=== PATIENT | male | born 1940 | race Caucasian/White ===

== ENCOUNTER 2017-11-17 10:01 | Inpatient (IN) | payer MEDICARE, OTHER ==
[2017-11-15 11:08] LABS: EOSINOPHILS % 0.8 % (0.0-6.0); HEMATOCRIT 38.1 % (38.2-49.6); HEMOGLOBIN 12.8 g/dL (14.0-18.0); LYMPHOCYTES # (AUTO) 1.5 (1.0-3.2); LYMPHOCYTES % 29.8 % (18.0-39.1); MEAN CORPUSCULAR HEMOGLOBIN 31.8 pg (28-32); MEAN CORPUSCULAR HGB CONC 33.6 g/dL (31-35); MEAN CORPUSCULAR VOLUME 94.5 fL (81-99); MONOCYTES # (AUTO) 0.5 (0.2-0.8); MONOCYTES % 9.5 % (4.4-11.3); NEUTROPHILS % 59.7 % (38.7-80.0); PLATELET COUNT 195 x10e3/uL (140-360); RED BLOOD COUNT 4.03 x10e6/uL (4.3-5.7); RED CELL DISTRIBUTION WIDTH 12.3 % (11.7-14.4)
[2017-11-15 11:22] LABS: INR 1.19; PROTHROMBIN TIME 14.2 seconds (11.9-14.5)
[2017-11-15 11:23] LABS: PARTIAL THROMBOPLASTIN TIME 32.1 seconds (23.8-35.5)
[2017-11-15 11:32] LABS: ALANINE AMINOTRANSFERASE 20 IU/L (0-55); ALBUMIN 3.8 g/dL (3.5-5.0); ALBUMIN/GLOBULIN RATIO 1.4 (0.8-2.0); ALKALINE PHOSPHATASE 48 IU/L (40-150); BLOOD UREA NITROGEN 16 mg/dL (7-26); BUN/CREATININE RATIO 20 (6-25); CALCIUM 9.1 mg/dL (8.4-10.2); CARBON DIOXIDE 33 mmol/L (22-29); CHLORIDE 101 mmol/L (98-107); CREATININE, SERUM 0.79 mg/dL (0.72-1.25); EST GLOMERULAR FILTRATION RATE > 60 ML/MIN (60-); GLUCOSE 119 mg/dL (74-118); SODIUM 140 mmol/L (136-145)
--- NOTE | 2017-11-15 11:36 | Diagnostic Imaging Report ---
EXAM: XR CHEST 2 VIEWS DATE: 11/15/2017 10:53 AM INDICATION: Preop for prostate surgery COMPARISON: None FINDINGS: Lines and Tubes: None Heart and Mediastinum: Heart upper limits of normal. Aortic vascular calcifications and moderate tortuosity descending thoracic aorta. Lungs and Pleura: Minimal blunting costophrenic sulci could represent trace amounts of pleural fluid or chronic scarring. Minimal atelectasis lung bases. Bones and Soft Tissues: No acute findings. IMPRESSION: 1. Probable chronic changes as detailed above. Signed by: Dr. Ar Mckeon MD on 11/15/2017 11:33 AM
[2017-11-17] VITALS (18 sets, daily range): BP systolic 85–164; BP diastolic 43–80
[~2017-11-17] VITALS: Ht 188 cm; Wt 80.7 kg
[~2017-11-17 10:01] MED LIST: DOXAZOSIN MESYLA2 MG PO; MESTINON60 MG PO
[2017-11-17] MEDS ORDERED: MORPHINE SULFATE INJ 4 MG/ML INJ IV PRN (15:00)
[2017-11-17] MEDS ORDERED: HYDROCODONE/APAP 7.5MG-325MG 1 EA TAB PO PRN (15:00)
[2017-11-17] MEDS ORDERED: DEXMEDETOMIDINE HCL 200 MCG in SODIUM CHLORIDE 0.9% 50ML 48 ML IV PRN (15:30)
--- NOTE | 2017-11-17 15:54 | Operative Report ---
DATE OF PROCEDURE: November 17, 2017 PREOPERATIVE DIAGNOSIS: Benign prostatic hypertrophy with obstruction and decreased force of stream. POSTOPERATIVE DIAGNOSIS: Benign prostatic hypertrophy with obstruction and decreased force of stream. OPERATION PERFORMED: GreenLight photo vaporization of the prostate. ANESTHESIA: General. INDICATIONS: This patient is 77-year-old white male who has had prostate problems that have been getting progressively worse despite medical care since 2005. The patient has recently had several episodes of going into urinary retention. For further details, please refer to the history and physical. The procedure was done in the following fashion: DESCRIPTION OF PROCEDURE: The patient was taken to the operating room and placed under general anesthesia dressed and draped with Hibiclens in lithotomy position in the usual fashion. The 22-Haitian Olympus laser cystoscope was inserted with the visual obturator. No urethral strictures were encountered. The sphincter and verumontanum were intact. The distance from the verumontanum to the bladder neck was estimated about 5 cm. Most of the growth of the prostate was lateral and anterior. There was minimal middle lobe hypertrophy. The prostate was estimated about 50 grams. There was clear efflux seen from both ureteral orifices. No bladder tumors or bladder stones were identified. They were all inspected with a 30-degree oblique lens and there was moderate trabeculation. I then switched over from the visual obturator to the working element. The GreenLight laser photo vaporization of prostate was performed, and this was first started using the laser at 80 gómez for vaporization and 80 gómez for coagulation at the region of the bladder neck. This was to avoid injury to the ureteral orifices. Once the bladder neck was opened up, I could then proceed backwards towards the verumontanum and I went to 120 for vaporization and then as I got further away from the bladder neck I went up to 160. The laser was then used to work my way back to the verumontanum going circumferentially and then clearing up the left lateral lobe and the right lateral lobe with a GreenLight laser. During the procedure, blood loss was minimal. When I terminated procedure, the verumontanum was intact. The ureteral orifices were intact and the prostatic urethra was wide open. I then removed the laser cystoscope and inserted a 24-Haitian 3-way catheter with a 30 mL balloon. Once I put the catheter in large amounts of blood started pouring out of the catheter. The catheter was then placed on traction and continuous bladder irrigation with sterile saline. Once the catheter was on traction with sterile saline, the acute blood loss episode was over. I estimated the blood loss at about 50 mL. The anesthesia was concerned that it might even have been as high as 200, but we were not sure, but it did start pouring blood out the catheter as soon as I put the catheter in. Meanwhile, the patient remained hemodynamically stable throughout the procedure. The patient tolerated the procedure well and left the operating room with minimal bleeding through the catheter now that it was on traction and continuous bladder irrigation. The total number of joules delivered was approximately 330,881 joules. My plan at this time is to have the patient admitted to [facility] and Dr. Lenard Shrestha is being consulted to help with medical management. Job#: [id number]
[2017-11-17] MEDS ORDERED: HALOPERIDOL LACTATE 5 MG/ML VIAL ONE (16:31)
[2017-11-17] MEDS: DOCUSATE SODIUM 100 MG CAP PO SCH (17:00)
[2017-11-17] MEDS ORDERED: ONDANSETRON HCL INJ 2 MG/ML VIAL ONE (17:08)
[2017-11-17] MEDS ORDERED: PROPOFOL IV EMULSION 10 MG/ML 20 ML VIAL ONE (17:08)
[2017-11-17] MEDS ORDERED: DEXAMETHASONE SOD PHOS INJ 4 MG/ML VIAL ONE (17:08)
[2017-11-17] MEDS ORDERED: LIDOCAINE HCL 2% LOCAL INJ 5 ML SDV VIAL INJ ONE (17:08)
[2017-11-17] MEDS ORDERED: MIDAZOLAM HCL 2 MG/2 ML VIAL ONE (17:13)
[2017-11-17] MEDS ORDERED: KETAMINE HCL INJ 50 MG/ML 10 ML VIAL ONE (17:13)
[2017-11-17] MEDS ORDERED: FENTANYL CITRATE/PF 100MCG/2 ML INJ ONE (17:13)
[2017-11-17 17:34] LABS: ANION GAP 10.9 mmol/L (8-16); BLOOD UREA NITROGEN 16 mg/dL (7-26); BUN/CREATININE RATIO 21 (6-25); CALCIUM 7.7 mg/dL (8.4-10.2); CARBON DIOXIDE 29 mmol/L (22-29); CHLORIDE 103 mmol/L (98-107); CREATININE, SERUM 0.75 mg/dL (0.72-1.25); EST GLOMERULAR FILTRATION RATE > 60 ML/MIN (60-); GLUCOSE 116 mg/dL (74-118); POTASSIUM 3.9 mmol/L (3.5-5.1); SODIUM 139 mmol/L (136-145)
[2017-11-17] MEDS: DEXMEDETOMIDINE HCL 200 MCG in SODIUM CHLORIDE 0.9% 50ML 48 ML IV SCH (17:45)
[2017-11-17] MEDS ORDERED: ACETAMINOPHEN 1000 MG/100 ML IV ONE (21:11)
[2017-11-17] MEDS ORDERED: ACETAMINOPHEN 1000 MG/100 ML 100 ML IV ONE (21:17)
[2017-11-17 21:58] LABS: BASOPHILS % 0.2 % (0.0-1.0); LYMPHOCYTES % 9.5 % (18.0-39.1); MEAN CORPUSCULAR HEMOGLOBIN 31.6 pg (28-32); MEAN CORPUSCULAR HGB CONC 32.5 g/dL (31-35); MEAN CORPUSCULAR VOLUME 97.3 fL (81-99); MONOCYTES # (AUTO) 0.9 (0.2-0.8); MONOCYTES % 8.4 % (4.4-11.3); NEUTROPHILS # (AUTO) 8.9 (2.1-6.9); NEUTROPHILS % 81.4 % (38.7-80.0); PLATELET COUNT 176 x10e3/uL (140-360); RED BLOOD COUNT 4.11 x10e6/uL (4.3-5.7); RED CELL DISTRIBUTION WIDTH 12.9 % (11.7-14.4)
[2017-11-17] MEDS ORDERED: AZTREONAM (AZACTAM) 1 GM in WATER STERILE 10ML VIAL 10 ML IV SCH (22:00)
[2017-11-17 22:10] LABS: COLOR,URINE YELLOW (YELLOW); LEUKOCYTE ESTERASE ,URINE NEGATIVE (NEGATIVE); NITRITE,URINE NEGATIVE (NEGATIVE); PROTEIN,URINE DIPSTICK 2+ (NEGATIVE)
[2017-11-17 22:11] LABS: BILIRUBIN,URINE NEGATIVE (NEGATIVE); KETONES,URINE NEGATIVE (NEGATIVE); URINE UROBILINOGEN 0.2 mg/dL (0.2 - 1)
[2017-11-17] MEDS: SODIUM CHLORIDE 0.9% 1000ML 1,000 ML IV SCH (22:11)
[2017-11-17 22:13] LABS: CLARITY,URINE SL CLOUDY (CLEAR)
[2017-11-17 22:13] LABS: ANION GAP 12.5 mmol/L (8-16); BLOOD UREA NITROGEN 14 mg/dL (7-26); BUN/CREATININE RATIO 18 (6-25); CARBON DIOXIDE 30 mmol/L (22-29); CHLORIDE 100 mmol/L (98-107); CREATININE, SERUM 0.78 mg/dL (0.72-1.25); EST GLOMERULAR FILTRATION RATE > 60 ML/MIN (60-); GLUCOSE 164 mg/dL (74-118); POTASSIUM 4.5 mmol/L (3.5-5.1); SODIUM 138 mmol/L (136-145)
[2017-11-17] MEDS: VANCOMYCIN 1GM/NS 250 ML 250 ML IV SCH (22:13)
[2017-11-17 22:19] LABS: RBC,URINE >50 /HPF (0-5)
[2017-11-17 22:20] LABS: BACTERIA,URINE RARE /HPF; TRANSITIONAL EPI CELLS,URINE FEW
[2017-11-17] MEDS: MORPHINE SULFATE INJ 4 MG/ML INJ IV PRN (22:25)
[2017-11-17] MEDS: AZTREONAM 1 GM VIAL IV SCH (23:00)
[2017-11-18] VITALS (58 sets, daily range): BP systolic 80–171; BP diastolic 36–95
[2017-11-18] MEDS: DEXMEDETOMIDINE HCL 200 MCG in SODIUM CHLORIDE 0.9% 50ML 48 ML IV SCH ×2 (01:06→05:12)
--- NOTE | 2017-11-18 01:29 | Diagnostic Imaging Report ---
CHEST SINGLE (PORTABLE), 11/18/2017 12:29 AM Technique: CHEST SINGLE (PORTABLE) Comparison: 11/15/2017 Clinical history: \S\ACUTE RESPIRATORY DISTRESS \S\[id number] \S\0100 \S\Y Findings: See Impression Impression: Limited by portable technique and rotation. Right lung apex is excluded. 1. Stable cardiomediastinal silhouette with aortic tortuosity or ectasia. 2. New bibasilar opacities, either atelectasis or aspiration/infection. Question small underlying effusions. Signed by: Dr Kriss Millan MD on 11/18/2017 1:26 AM
[2017-11-18 01:34] LABS: ABG HCO3 32 mmol/L (23-28); ABG PCO2 96 mmHg (41-51); ABG PH 7.14 (7.31-7.41); ABG PO2 51 mmHg (80-105)
[2017-11-18] MEDS ORDERED: ACETAMINOPHEN 1000 MG/100 ML IV SCH (03:00)
[2017-11-18 03:36] LABS: ABG PH 7.21 (7.31-7.41)
[2017-11-18 03:37] LABS: ABG HCO3 33 mmol/L (23-28); ABG PCO2 82 mmHg (41-51); ABG PO2 127 mmHg (80-105)
[2017-11-18 04:31] LABS: BASOPHILS % 0.1 % (0.0-1.0); HEMATOCRIT 34.3 % (38.2-49.6); HEMOGLOBIN 11.2 g/dL (14.0-18.0); LYMPHOCYTES # (AUTO) 0.8 (1.0-3.2); LYMPHOCYTES % 9.6 % (18.0-39.1); MEAN CORPUSCULAR HEMOGLOBIN 31.5 pg (28-32); MEAN CORPUSCULAR HGB CONC 32.7 g/dL (31-35); MEAN CORPUSCULAR VOLUME 96.6 fL (81-99); MONOCYTES # (AUTO) 0.8 (0.2-0.8); NEUTROPHILS # (AUTO) 6.7 (2.1-6.9); NEUTROPHILS % 79.7 % (38.7-80.0); PLATELET COUNT 139 x10e3/uL (140-360); RED BLOOD COUNT 3.55 x10e6/uL (4.3-5.7)
[2017-11-18 04:48] LABS: ANION GAP 12.5 mmol/L (8-16); BLOOD UREA NITROGEN 18 mg/dL (7-26); BUN/CREATININE RATIO 18 (6-25); CALCIUM 7.9 mg/dL (8.4-10.2); CARBON DIOXIDE 29 mmol/L (22-29); CHLORIDE 102 mmol/L (98-107); CREATININE, SERUM 0.99 mg/dL (0.72-1.25); EST GLOMERULAR FILTRATION RATE > 60 ML/MIN (60-); GLUCOSE 132 mg/dL (74-118); POTASSIUM 4.5 mmol/L (3.5-5.1); SODIUM 139 mmol/L (136-145)
[2017-11-18] MEDS: MORPHINE SULFATE INJ 4 MG/ML INJ IV PRN (05:08)
[2017-11-18] MEDS: AZTREONAM 1 GM VIAL IV SCH ×2 (05:12→14:31)
[2017-11-18] MEDS ORDERED: ACETAMINOPHEN 1000 MG/100 ML IV PRN (06:00)
[2017-11-18] MEDS: FAMOTIDINE 20 MG TAB PO SCH ×3 (07:52→17:14)
[2017-11-18] MEDS: MIDODRINE 2.5 MG TAB PO SCH ×4 (07:52→17:14)
[2017-11-18] MEDS: PYRIDOSTIGMINE BROMIDE 60 MG TAB PO SCH (07:52)
[2017-11-18] MEDS: SODIUM CHLORIDE 0.9% 1000ML 1,000 ML IV SCH ×3 (07:52→22:00)
[2017-11-18] MEDS: DOCUSATE SODIUM 100 MG CAP PO SCH ×3 (07:52→17:14)
--- NOTE | 2017-11-18 08:25 | Consultation ---
DATE OF CONSULTATION: November 18, 2017 MEDICAL CONSULTATION PRIMARY CARE PHYSICIAN: Dr. Posey in [place]. REASON FOR CONSULTATION: Medical management. CHIEF COMPLAINT: Enlarged prostate requiring ablation. HISTORY OF PRESENT ILLNESS: This is a 77-year-old man with a history of asbestosis now brought into the hospital for elective green light photoablation of the prostate by Dr. Coello. The patient underwent the procedure. Subsequently, developed worsening shortness of breath. His blood pressure was low. He was moved to the ICU. He had to be started on BiPAP overnight due to carbon dioxide narcosis and confusion. He was started on broad-spectrum antibiotics for sepsis. The patient was restrained due to attempts to remove the Daniel and mask. His has been at his bedside. states that there is no history of congestive heart failure or sleep apnea. 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 He had a leaky aortic valve in 2011. 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 ALLERGIES: PER ELECTRONIC MEDICAL RECORD. FAMILY HISTORY/SOCIAL HISTORY: Father had Alzheimer disease and glaucoma. The patient is . He smokes less than half a pack of cigarettes per day. MEDICATIONS: Per electronic medical record. REVIEW OF SYSTEMS: Unreliable. PHYSICAL EXAMINATION VITAL SIGNS: Have been reviewed. Blood pressure as low as 87/43, pulse as high as 111, temperature 99.9. GENERAL: A tired-appearing man resting in bed. HEENT: He has BiPAP mask in place. CARDIOVASCULAR: Normal S1 and S2. LUNGS: He has reduced breath sounds with fine crackles. Coarse breath sounds. ABDOMEN: Soft, nontender and nondistended. : He has a Daniel in place. EXTREMITIES: No edema. SCDs bilaterally. SKIN: Dry. PSYCHIATRIC: Flat affect. NEUROLOGICAL: He is awake and moving extremities. He is restrained. LABS: Reviewed. MEDICATIONS: Reviewed. ASSESSMENT: This is a 77-year-old man with: 1. Sepsis. 2. Urinary tract infection. 3. CO2 narcosis. 4. CO2 retention. 5. Acute hypercapnic hypoxemic respiratory failure requiring BiPAP. 6. Hyperglycemia. 7. Signs of congestive heart failure with elevated brain natriuretic peptide. 8. Myasthenia gravis. 9. BPH: Status post green light laser photoablation. 10. Overweight state. 11. Asbestosis. PLAN 1. Continue BiPAP support. His pCO2 was 96 and now down to 82. 2. Continue broad-spectrum antibiotics of aztreonam and vancomycin, and follow up cultures. 3. Obtain 2-D echocardiogram. 4. Obtain lipid panel and hemoglobin A1c. 5. Pulmonary service was consulted overnight. 6. Limit fluids. 7. Start midodrine for hypotension. 8. Continue bladder irrigation. 9. Use SCD and Pepcid. 10. Monitor closely in the ICU. Critical care time more than 35 minutes. Job#: [id number] [place]
[2017-11-18] MEDS ORDERED: FLOMAX0.4 MG PO (08:49)
--- NOTE | 2017-11-18 11:14 | Consultation ---
DATE OF CONSULTATION: November 18, 2017 PULMONARY CONSULTATION On behalf of Dr. Christensen. The patient is a 77-year-old white male consulted for the development of acute hypercapnic and hypoxemic respiratory failure after undergoing TURP for very enlarged prostate, and getting different medications for sedation and pain medication. The patient was put on BiPAP, and in the subsequent hours he improved. The current condition is that on 5 L he has an oxygen saturation of 99. He is completely alert. The patient is not showing good cooperation. He is in a position of refusing. The is giving the medical information on the patient. No previous lung problems. There is some aortic dysfunction. He had enlarged prostate, which was treated by TURP. He was, after the surgery, very agitated and combative. Massive sedation as well as pain medication was given. The denies hypertension, diabetes mellitus, or hyperlipidemia. The patient is on Mestinon for myasthenia gravis. There are no GI tract problems and no kidneys besides the prostate. He had surgery for skin melanoma. At least 2 were removed. There was also some kind of carcinoma on the hands, and surgery and radiation was given. PAST SURGICAL HISTORY: Bilateral repair, bilateral cataract, tonsillectomy. SOCIAL HISTORY: The patient at a young age used to be an occasional smoker. Also, at a young age alcohol abuse until 30 years ago when he quit. No illicit drug abuse. ALLERGIES: THE PATIENT IS ALLERGIC TO AND HYDROCODONE. PHYSICAL EXAMINATION GENERAL: He is awake, but there is some degree of refusal to be checked. VITALS: The pulse is 85, oxygen saturation 99 on 5 L and we went down to 3 L, respiratory rate 25, blood pressure 93/56. HEENT: Atraumatic. NECK: No tenderness. LUNGS: Decreased breath sounds in both bases. HEART: No murmurs. ABDOMEN: Soft. EXTREMITIES: No pedal edema. LABS: Platelets 139,000. Sugar 132. Hemoglobin A1c 5.2. BNP 305. Calcium 7.9, albumin 3.8. The rest of the CBC and chemistry unremarkable. Chest x-ray disclosed haziness of the left lung. There is bibasilar atelectasis and probably some degree of pleural effusion. The ABG that was done at the beginning when he arrived to the unit, pH 7.14, pCO2 96, pO2 51. BiPAP was given and then it was stopped. Currently, the patient is on currently 3 L of oxygen and he is doing fine. IMPRESSION 1. Acute hypercapnic and hypoxemic respiratory failure: Treated after sedation and pain medication was given. 2. Status post transurethral resection of prostate for enlargement of the prostate. 3. The patient has myasthenia gravis. 4. The patient has been combative and agitated: Currently, he is expressing his desire to go home AMA. RECOMMENDATIONS: Continue with oxygen at 3 L by nasal cannula, and to start as soon as possible incentive spirometry. If the patient remains in the urine, I will follow him during the weekend. If he is leaving, this is up to Dr. Shrestha in order to decide if the patient can be discharged. Job#: [id number] MAURICIO
--- NOTE | 2017-11-18 13:33 | Progress Note ---
DATE: November 18, 2017 Yesterday, the patient became very combative after the green light laser photovaporization of the prostate and started ripping at things and demanding to go home. Per suggestion of anesthesia, the patient was moved from the recovery room to the intensive care unit. The patient's states that he has been combative before after surgery, but this was the worst time he had been combative after surgery. The patient this morning is afebrile. His hemoglobin was 11.2 and hematocrit is 34.3. His BUN is 18 and creatinine is 0.99. The traction has broken off of the catheter and the catheter is no longer on traction. The catheter effluxes clear with a continuous bladder irrigation running at a slow, steady rate. PHYSICAL EXAMINATION GENERAL: The patient has restraints on, but they are not tied down. There are just on his extremities. Patient demanded to go home. LUNGS: Have some rales at the bottom, and they clear with coughing. ABDOMEN: Soft. : The penis and testicles appear normal. EXTREMITIES: There is no evidence of a deep venous thrombophlebitis. I told patient that he was in no shape to go home today. I told him that if he becomes combative again, that might mean restraints again and another day in the hospital. After discussion with the patient, the plan is as follows: The patient states he will not be combative, and we can transfer him to the floor. If he continues to do well overnight, the Daniel catheter will be removed tomorrow for a trial of voiding. However, if there are any problems, he was advised that the catheter might stay in, and he would be in the hospital longer. Job#: [id number] [place]
[2017-11-18] MEDS ORDERED: MIDAZOLAM HCL 2 MG/2 ML VIAL IV STA (17:54)
[2017-11-18 18:00] LABS: ALANINE AMINOTRANSFERASE 31 IU/L (0-55); ALBUMIN 3.3 g/dL (3.5-5.0); ALBUMIN/GLOBULIN RATIO 1.2 (0.8-2.0); ALKALINE PHOSPHATASE 53 IU/L (40-150); ANION GAP 14.8 mmol/L (8-16); BLOOD UREA NITROGEN 15 mg/dL (7-26); BUN/CREATININE RATIO 15 (6-25); CALCIUM 8.3 mg/dL (8.4-10.2); CARBON DIOXIDE 26 mmol/L (22-29); CHLORIDE 101 mmol/L (98-107); CREATINE KINASE 390 IU/L (30-200); CREATININE, SERUM 0.97 mg/dL (0.72-1.25); EST GLOMERULAR FILTRATION RATE > 60 ML/MIN (60-); GLUCOSE 172 mg/dL (74-118); POTASSIUM 3.8 mmol/L (3.5-5.1); SODIUM 138 mmol/L (136-145)
[2017-11-18] MEDS ORDERED: NOREPINEPHRINE 8 MG/D5W 250 ML ONE (18:00)
[2017-11-18 18:18] LABS: BASOPHILS % 0.2 % (0.0-1.0); EOSINOPHILS % 0.1 % (0.0-6.0); HEMATOCRIT 37.7 % (38.2-49.6); HEMOGLOBIN 12.3 g/dL (14.0-18.0); LYMPHOCYTES # (AUTO) 3.8 (1.0-3.2); LYMPHOCYTES % 24.1 % (18.0-39.1); MEAN CORPUSCULAR HEMOGLOBIN 31.9 pg (28-32); MEAN CORPUSCULAR HGB CONC 32.6 g/dL (31-35); MEAN CORPUSCULAR VOLUME 97.9 fL (81-99); MONOCYTES # (AUTO) 1.8 (0.2-0.8); MONOCYTES % 11.2 % (4.4-11.3); NEUTROPHILS # (AUTO) 10.1 (2.1-6.9); NEUTROPHILS % 63.9 % (38.7-80.0); PLATELET COUNT 194 x10e3/uL (140-360); RED BLOOD COUNT 3.85 x10e6/uL (4.3-5.7)
[2017-11-18] MEDS ORDERED: NOREPINEPHRINE 8 MG/D5W 250 ML 250 ML IV PRN (18:30)
[2017-11-18] MEDS ORDERED: PROPOFOL IV EMULSION 10MG/ML 100 ML ONE (18:35)
--- NOTE | 2017-11-18 18:51 | Diagnostic Imaging Report ---
History:Unresponsive Comparison studies: None Technique: Axial images were obtained from the skull base to the vertex. Coronal and sagittal images reconstructed from the axial data. Dose modulation, iterative reconstruction, and/or weight based adjustment of the mA/kV was utilized to reduce the radiation dose to as low as reasonably achievable. Intravenous contrast: None Findings: Scalp/skull: No abnormalities. Extra-axial spaces: No masses. No fluid collections. Brain sulci: Appropriate for age Ventricles: Normal in size and configuration. No hydrocephalus. Parenchyma: No abnormal densities. No masses, hemorrhage, acute or chronic cortical vascular insults. Sellar/suprasellar region: No abnormalities. Craniocervical junction: Patent foramen magnum. No Chiari one malformation. Incidental findings: Subtle atherosclerotic calcifications in the carotid siphons and right vertebral artery. Impression: No intracranial abnormalities. Signed by: Dr. Azar Ferris M.D. on 11/18/2017 6:47 PM
[2017-11-18 19:23] LABS: BAND NEUTROPHILS % (MANUAL) 1 %; LYMPHOCYTES % (MANUAL) 15 % (19-48); MONOCYTES % (MANUAL) 18 % (3.4-9.0); NEUTROPHILS % (MANUAL) 54 % (40-74); PLATELET ESTIMATE ADEQUATE; PLATELET MORPHOLOGY COMMENT NORMAL; RBC MORPHOLOGY COMMENT NORMAL
--- NOTE | 2017-11-18 19:25 | Diagnostic Imaging Report ---
CHEST SINGLE (PORTABLE), 11/18/2017 12:00 AM Technique: CHEST SINGLE (PORTABLE) Comparison: 11/18/2017 Clinical history: cardiac arrest Findings: See Impression Impression: Rotated portable radiograph. 1. Lines/Tubes: ET tube placement 4.7 cm above the gilbert. 2. Stable enlarged cardiomediastinal silhouette. 3. New diffuse bilateral opacities, likely a component of edema. Underlying bibasilar atelectasis or aspiration/infection. 4. Possible underlying pleural fluid. Signed by: Dr Kriss Millan MD on 11/18/2017 7:22 PM
[2017-11-18 20:05] LABS: ABG HCO3 31 mmol/L (23-28); ABG PCO2 59 mmHg (41-51); ABG PH 7.33 (7.31-7.41); ABG PO2 85 mmHg (80-105)
--- NOTE | 2017-11-18 20:11 | Progress Note ---
DATE: November 18, 2017 UROLOGY PROGRESS NOTE I was notified by the nursing staff that the patient had just had a code blue. Apparently, the patient's left the room for a few seconds then came back in and saw that he was not responding appropriately and looked faint and weak and she contacted the nursing staff. The patient's telemetry suggested that he might be having an acute myocardial infarction and because he was having some difficulty breathing, he was intubated and his troponin levels have now come back showing that they were rising, so it strongly suggests that he has an acute myocardial infarction. The patient has been transferred back to the intensive care unit on a ventilator and I ordered not to remove the Daniel catheter. PHYSICAL EXAMINATION GENERAL: The patient is no longer agitated and combative since he has been placed on Ditropan. ABDOMEN: Soft. The catheter is draining clear-colored fluid with continuous bladder irrigation running, but I am not taking the catheter out tomorrow as it was previously planned. Further recommendations regarding the treatment of this patient was made by Dr. Shrestha and the pulmonary consultants, Dr. Christensen, and Dr. Mitul Coombs has been consulted as a assembly loader. Meanwhile the patient's hemoglobin was 12.3 hematocrit of 37.7. His BUN is 15 creatinine 0.97. IMPRESSION: At this time is acute myocardial infarction and benign prostatic hypertrophy with obstruction. Job#: [id number] CQ
[2017-11-18] MEDS ORDERED: MIDAZOLAM HCL 5 MG/ML VIAL ONE (21:43)
[2017-11-18] MEDS ORDERED: SODIUM CHLORIDE 0.9% 100 ML ONE (21:44)
--- NOTE | 2017-11-18 21:48 | Diagnostic Imaging Report ---
CHEST XRAY LINE PLACEMENT, 11/18/2017 9:11 PM Technique: CHEST XRAY LINE PLACEMENT Comparison: 11/18/2017. Clinical history: Picc line placement Findings: See Impression Impression: 1. Lines/Tubes: ET tube about 5.5 cm above the gilbert. Left PICC line tip projects near the cavoatrial junction, slightly obscured by motion and body habitus. 2. Likely stable enlarged cardiomediastinal silhouette 3. Diffuse opacities, favor a component of edema with bibasilar atelectasis or aspiration/infection. Possible underlying effusions. Signed by: Dr Kriss Millan MD on 11/18/2017 9:45 PM
[2017-11-18] MEDS: VANCOMYCIN 1GM/NS 250 ML 250 ML IV SCH (23:00)
[2017-11-18] MEDS: PROPOFOL IV EMULSION 10MG/ML 100 ML IV SCH (23:22)
[2017-11-19] VITALS (49 sets, daily range): BP systolic 82–153; BP diastolic 44–90
[2017-11-19] MEDS: AZTREONAM 1 GM VIAL IV SCH ×4 (00:05→23:30)
[2017-11-19 04:49] LABS: ALBUMIN 2.9 g/dL (3.5-5.0); BILIRUBIN,DIRECT 0.4 mg/dL (0.0-0.5)
[2017-11-19 04:58] LABS: CREATINE KINASE MB 8.1 ng/mL (0-5.0)
[2017-11-19] MEDS: FAMOTIDINE 20 MG TAB PO SCH ×2 (07:30→16:30)
[2017-11-19] MEDS: MIDODRINE 2.5 MG TAB PO SCH ×3 (08:00→16:00)
[2017-11-19] MEDS: PYRIDOSTIGMINE BROMIDE 60 MG TAB PO SCH (09:00)
[2017-11-19] MEDS: DOCUSATE SODIUM 100 MG CAP PO SCH ×2 (09:00→17:00)
[2017-11-19] MEDS: MIDAZOLAM HCL 25 MG in SODIUM CHLORIDE 0.9% 50ML 45 ML IV PRN ×3 (09:30→20:19)
[2017-11-19] MEDS ORDERED: ASPIRIN 81 MG CHEW TAB NG ONE (10:00)
[2017-11-19] MEDS: ATORVASTATIN 40 MG TAB NG SCH (10:00)
--- NOTE | 2017-11-19 10:41 | Consultation ---
DATE OF CONSULTATION: November 19, 2017 CARDIOLOGY CONSULTATION REASON FOR CONSULTATION: Cardiac arrest. Mr. Sabillon is a 77-year-old gentleman with a history of malignant melanoma, benign prostatic hypertrophy, dysarthria, dysphagia, as well as aortic valve disease, who was admitted for transurethral resection of his prosthetic by Dr. Coello. Postoperatively, the patient was hypercarbic and insisted on transferring out of the ICU. However, had hypercarbic respiratory failure with a pH of 7.14, pCO2 96 and pO2 of 51. Brief chest compressions were required. He was emergently intubated with improvement in his pH and pCO2 levels. He now is hypertensive in the emergency room on dopamine and Levophed. He is sedated with propofol and is unresponsive. I cannot assert any history of cardiac disease. There is no family present at bedside. Per the chart, the patient smoked several years ago and also drank excessively, but not at present. REVIEW OF SYSTEMS: Unobtainable as the patient is intubated. PHYSICAL EXAMINATION VITALS: Afebrile, heart rate 78, blood pressure 121/61, O2 sat 99%. CARDIOVASCULAR: Regular rhythm. S4 gallop. Systolic murmur. LUNGS: Crackles and rhonchi bilaterally. ABDOMEN: Distended. : Urethral irrigation is ongoing. EXTREMITIES: Pedal pulses are absent. The patient is unresponsive. Serum creatinine is normal. Cardiac enzymes are elevated consistent with myocardial infarction. Troponin is 1.62. CK-MB 10.3. Chest CT was done. Chest x-ray shows atelectasis with pleural effusions bilaterally. Echocardiogram is pending. EKG shows sinus rhythm with left ventricular hypertrophy, repolarization abnormalities and QRS widening. ASSESSMENT 1. Hypercarbic respiratory arrest. 2. Kms-HH-[id number] elevation myocardial infarction. RECOMMENDATION: At this point, the patient is hypotensive and will be unable to give him beta blockers. Additionally, he has ongoing irrigation for his recent prostate surgery, and anticoagulation will also be held at this point. He does need an NG tube and potentially aspirin and statin as the only cardiac medications. Echocardiogram will be obtained. Once the patient has recovered from his acute illness, cardiogenic shock, as well as cardiac arrest, coronary angiography is indicated. Overall prognosis is guarded. I thank Dr. Coello for this consultation. Job#: [id number] [place]
--- NOTE | 2017-11-19 11:14 | Progress Note ---
DATE: November 19, 2017 The patient is currently in the intensive care unit on a ventilator. He is getting vancomycin and propofol, norepinephrine, dopamine, atorvastatin, famotidine, and morphine and among others. The patient is not combative right now as he is heavily sedated. PHYSICAL EXAMINATION LUNGS: Still has some rales. ABDOMEN: Soft. : The Daniel catheter is draining fairly clear-colored urine on a slow continuous drip. EXTREMITIES: There is no evidence of swelling of the legs right now suggestive of a DVT that I can see. He still has the compression pumps. My plan at this time is to keep the Daniel catheter in until the patient is off the ventilator, breathing on his own and ambulatory. Job#: [id number] MAURICIO
[2017-11-19] MEDS: SODIUM CHLORIDE 0.9% 1000ML 1,000 ML IV SCH ×2 (12:00→22:00)
--- NOTE | 2017-11-19 15:59 | Progress Note ---
DATE: November 19, 2017 The patient is a 77 year old that yesterday was transferred from the unit to the regular floor. Over there, he arrested. He needed to be intubated. He was severely hypotensive on Levophed, and subsequently dopamine was started. Since then, the patient has been improving. He is more responsive, but he still when he is awake he is agitated, combative, and he tries to pull out the lines. The patient was admitted after undergoing surgery for the enlarged prostate. He developed pneumonia. He developed respiratory failure. He was seen by me yesterday. He required as I reported intubation. We were able to extubate him. When he was transferred to the regular floor, he arrested. He has a history of myasthenia gravis. Besides that, he has a history of urinary tract infection. The patient had surgery for melanoma present in the area of the left scapula and left forearm. 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 He had also cataract surgery. 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 He was found to have elevated PSA on November 02, 2017. He has myasthenia gravis. He was seen to have parietal plaques. Most likely he had exposure to asbestos. Used to smoke about half a pack a day, but has not smoked recently. He never drank. He denies illicit drug abuse. ALLERGIES: HE IS ALLERGIC TO CEFADROXIL AND HYDROCODONE WITH TYLENOL. PHYSICAL EXAMINATION GENERAL: Currently, he is sleeping. VITALS: Blood pressure 92/47, pulse 80. He is on a dopamine drip. He is on a Versed drip. He is on an assist control of 50, tidal volume 450, FIO2 70, PEEP of 7. HEENT: Oral intubation. NECK: No tenderness. LUNGS: There are decreased breath sounds, as well as rhonchi in both lungs. HEART: No murmurs. ABDOMEN: Soft. EXTREMITIES: He has no pedal edema. LABS: WBC is 15.84. Sugar 154. Lactic acid 28.4. AST 51. CPK 390. Troponin I the highest is 3627. Albumin 3.3. The chest x-ray disclosed the basilar infiltration and opacity. The electrocardiogram disclosed changes in the repolarization that can be compatible with acute VA. IMPRESSION 1. Acute respiratory failure, most likely acute myocardial infarction. 2. Cardiogenic shock. 3. He may have septic shock. 4. Myasthenia gravis. 5. He has chronic obstructive pulmonary disease. 6. He has history of most likely asbestos exposure. 7. Multiple surgeries for melanoma, as well as cancer of the arm. RECOMMENDATIONS: I would recommend to continue with the dopamine, the Versed drip, the current ventilatory settings. He is on 1 g q.8 h. IV and vancomycin 1 g daily. He is also on Mestinon due to the myasthenia gravis. Job#: [id number] [place]
[2017-11-19 16:44] LABS: BASOPHILS % 0.1 % (0.0-1.0); EOSINOPHILS % 0.1 % (0.0-6.0); HEMATOCRIT 31.3 % (38.2-49.6); HEMOGLOBIN 10.6 g/dL (14.0-18.0); LYMPHOCYTES # (AUTO) 1.1 (1.0-3.2); LYMPHOCYTES % 13.7 % (18.0-39.1); MEAN CORPUSCULAR HEMOGLOBIN 31.5 pg (28-32); MEAN CORPUSCULAR HGB CONC 33.9 g/dL (31-35); MEAN CORPUSCULAR VOLUME 93.2 fL (81-99); MONOCYTES % 12.2 % (4.4-11.3); NEUTROPHILS % 73.4 % (38.7-80.0); PLATELET COUNT 151 x10e3/uL (140-360); RED BLOOD COUNT 3.36 x10e6/uL (4.3-5.7); RED CELL DISTRIBUTION WIDTH 12.5 % (11.7-14.4)
[2017-11-19 16:53] LABS: ANION GAP 12.9 mmol/L (8-16); BLOOD UREA NITROGEN 17 mg/dL (7-26); BUN/CREATININE RATIO 24 (6-25); CALCIUM 8.2 mg/dL (8.4-10.2); CARBON DIOXIDE 30 mmol/L (22-29); CHLORIDE 102 mmol/L (98-107); EST GLOMERULAR FILTRATION RATE > 60 ML/MIN (60-); GLUCOSE 109 mg/dL (74-118); MAGNESIUM 1.8 MG/DL (1.3-2.1); PHOSPHORUS 1.4 MG/DL (2.3-4.7); POTASSIUM 3.9 mmol/L (3.5-5.1); SODIUM 141 mmol/L (136-145)
[2017-11-19] MEDS: PROPOFOL IV EMULSION 10MG/ML 100 ML IV SCH (19:30)
[2017-11-19] MEDS: VANCOMYCIN 1GM/NS 250 ML 250 ML IV SCH (23:00)
[2017-11-20] VITALS (57 sets, daily range): BP systolic 89–133; BP diastolic 50–73
[2017-11-20] MEDS: MIDAZOLAM HCL 25 MG in SODIUM CHLORIDE 0.9% 50ML 45 ML IV PRN ×4 (02:20→21:25)
[2017-11-20 04:39] LABS: BASOPHILS % 0.2 % (0.0-1.0); EOSINOPHILS % 0.2 % (0.0-6.0); HEMATOCRIT 29.3 % (38.2-49.6); HEMOGLOBIN 9.9 g/dL (14.0-18.0); LYMPHOCYTES # (AUTO) 0.8 (1.0-3.2); LYMPHOCYTES % 12.5 % (18.0-39.1); MEAN CORPUSCULAR HEMOGLOBIN 31.7 pg (28-32); MEAN CORPUSCULAR HGB CONC 33.8 g/dL (31-35); MEAN CORPUSCULAR VOLUME 93.9 fL (81-99); MONOCYTES # (AUTO) 0.7 (0.2-0.8); MONOCYTES % 10.6 % (4.4-11.3); NEUTROPHILS # (AUTO) 4.9 (2.1-6.9); NEUTROPHILS % 76.2 % (38.7-80.0); PLATELET COUNT 146 x10e3/uL (140-360); RED BLOOD COUNT 3.12 x10e6/uL (4.3-5.7); RED CELL DISTRIBUTION WIDTH 12.6 % (11.7-14.4)
[2017-11-20 05:03] LABS: ALANINE AMINOTRANSFERASE 22 IU/L (0-55); ALBUMIN 2.5 g/dL (3.5-5.0); ALKALINE PHOSPHATASE 51 IU/L (40-150); ANION GAP 11.7 mmol/L (8-16); BLOOD UREA NITROGEN 19 mg/dL (7-26); BUN/CREATININE RATIO 28 (6-25); CALCIUM 8.1 mg/dL (8.4-10.2); CARBON DIOXIDE 29 mmol/L (22-29); CHLORIDE 106 mmol/L (98-107); CREATININE, SERUM 0.69 mg/dL (0.72-1.25); EST GLOMERULAR FILTRATION RATE > 60 ML/MIN (60-); GLUCOSE 94 mg/dL (74-118); MAGNESIUM 1.8 MG/DL (1.3-2.1); PHOSPHORUS 1.8 MG/DL (2.3-4.7); POTASSIUM 3.7 mmol/L (3.5-5.1); SODIUM 143 mmol/L (136-145)
[2017-11-20 06:11] LABS: ABG PCO2 48 mmHg (41-51); ABG PO2 56 mmHg (80-105)
[2017-11-20 06:12] LABS: ABG HCO3 30 mmol/L (23-28)
--- NOTE | 2017-11-20 06:21 | Diagnostic Imaging Report ---
CHEST SINGLE (PORTABLE), 11/20/2017 5:00 AM Technique: CHEST SINGLE (PORTABLE) Comparison: 11/18/2017. Clinical history: Intubated Findings: See Impression Impression: Rotated portable radiograph 1. Lines/Tubes: ET tube about 6 cm above the gilbert. Left PICC line tip projects near the cavoatrial junction, slightly obscured by motion and body habitus. 2. Stable cardiomediastinal silhouette 3. Increased left basilar opacity, likely a combination of moderate pleural fluid and atelectasis/consolidation. Small right pleural effusion. Suspected underlying edema. Signed by: Dr Kriss Millan MD on 11/20/2017 6:18 AM
[2017-11-20 08:24] LABS: ABG HCO3 28 mmol/L (23-28); ABG PCO2 51 mmHg (41-51); ABG PH 7.35 (7.31-7.41); ABG PO2 135 mmHg (80-105)
[2017-11-20] MEDS: DOCUSATE SODIUM 100 MG CAP PO SCH ×2 (09:00→15:35)
[2017-11-20] MEDS: SODIUM CHLORIDE 0.9% 1000ML 1,000 ML IV SCH ×4 (09:59→22:48)
[2017-11-20] MEDS: AZTREONAM 1 GM VIAL IV SCH ×3 (09:59→22:42)
--- NOTE | 2017-11-20 11:24 | Diagnostic Imaging Report ---
EXAM: Abdomen 1 View INDICATION: \S\NGT insertion \S\[id number] \S\1100 COMPARISON: Checks x-ray of the same date. FINDINGS: Dedicated x-ray to confirm nasogastric tube placement. Nasogastric tube is in place, extending below the left hemidiaphragm with tip overlying the gastric antrum. Nonobstructive bowel gas pattern. Opacification of the visualized left lung due to effusion/atelectasis or infiltrate. Trace right pleural effusion. Degenerative changes of spine. IMPRESSION: Nasogastric tube tip overlying the gastric antrum. Signed by: Dr. Marcellus Borja MD on 11/20/2017 11:21 AM
[2017-11-20] MEDS: MIDODRINE 2.5 MG TAB PO SCH ×3 (12:00→15:34)
[2017-11-20] MEDS: ATORVASTATIN 40 MG TAB NG SCH (12:20)
[2017-11-20] MEDS: PYRIDOSTIGMINE BROMIDE 60 MG TAB PO SCH (12:20)
[2017-11-20] MEDS: FAMOTIDINE 20 MG TAB PO SCH (12:20)
[2017-11-20] MEDS: BISACODYL 5 MG TAB EC PO SCH (12:20)
[2017-11-20] MEDS: BISACODYL 10 MG SUPP PR PRN (12:21)
[2017-11-20] MEDS: ACETAMINOPHEN 325 MG TAB PO PRN (12:21)
--- NOTE | 2017-11-20 12:21 | Progress Note ---
DATE: November 20, 2017 UROLOGY PROGRESS NOTE CONSULTING PHYSICIANS: Dr. Luisito Christensen, Dr. Lenard Shrestha and Dr. Mitul Coombs. The patient remains on the ventilator. His temperature this morning was 100.8 and then went up to 103, so the main concern at this point in time is has he developed pneumonia. Physical examination at this time reveals that the patient is still heavily sedated. His lungs actually sound fairly clear. His bowel sounds are quiet. There is no evidence of epididymitis. His catheter efflux is clear with a continuous bladder irrigation running at a very slow rate. The patient's hemoglobin was 9.9, hematocrit 29.3, white blood cell count 6.42. His BUN is 19 and creatinine 0.69. My recommendations again at this time are to continue the Daniel to continuous bladder irrigation, and I will not consider removal of the Daniel until the patient has been extubated and is ambulatory. Job#: [id number]
[2017-11-20] MEDS ORDERED: MIDAZOLAM HCL 2 MG/2 ML VIAL ONE (15:01)
[2017-11-20 16:35] LABS: CLARITY,URINE HAZY (CLEAR); COLOR,URINE YELLOW (YELLOW); KETONES,URINE TRACE (NEGATIVE); LEUKOCYTE ESTERASE ,URINE TRACE (NEGATIVE); NITRITE,URINE NEGATIVE (NEGATIVE); PROTEIN,URINE DIPSTICK 2+ (NEGATIVE); URINE UROBILINOGEN 0.2 mg/dL (0.2 - 1)
[2017-11-20 16:36] LABS: BILIRUBIN,URINE 1+ (NEGATIVE)
[2017-11-20 16:46] LABS: BACTERIA,URINE MODERATE /HPF; EPITHELIAL CELLS,URINE FEW /LPF; RBC,URINE >50 /HPF (0-5)
[2017-11-20] MEDS: LEVALBUTEROL HCL SOLN NEBU 0.63 MG/3 ML NEB INH SCH (19:20)
[2017-11-20] MEDS: PROPOFOL IV EMULSION 10MG/ML 100 ML IV SCH (19:30)
[2017-11-20] MEDS: PANTOPRAZOLE 40 MG 10ML VIAL IV SCH (20:24)
--- NOTE | 2017-11-20 20:52 | Progress Note ---
DATE: No Dictation 00:07 seconds. Job#: [id number]
--- NOTE | 2017-11-20 21:02 | Progress Note ---
DATE: November 19, 2017 TIME: 4:00 p.m. OVERNIGHT: Patient had code blue called, found to have kik-GU-kyqwyrfrx OR, had acute respiratory failure, moved back to the ICU and intubated. REVIEW OF SYSTEMS: Unobtainable. PHYSICAL EXAMINATION: VITAL SIGNS: Have been reviewed. GENERAL APPEARANCE: Tired-appearing man resting in bed. HEENT: ET tube in place. CARDIOVASCULAR: Normal S1 and S2. LUNGS: He has reduced breath sounds throughout. ABDOMEN: Soft, nontender. : He has Daniel in place. EXTREMITIES: Trace edema. SKIN: Dry. PSYCHIATRIC: Unable to assess. NEUROLOGICAL: Sedated. LABS: Reviewed. MEDICATIONS: Reviewed. ASSESSMENT: A 77-year-old man. 1. Sepsis. 2. Acute respiratory failure. 3. Pcp-CW-fvuckxqje myocardial infarction. 4. Cardiogenic shock. 5. Urinary tract infection. 6. Carbon dioxide narcosis. 7. Carbon dioxide retention. 8. Acute hypercapnic hypoxemic respiratory failure. 9. Signs of congestive heart failure. 10. Hyperglycemia. 11. Myasthenia gravis. 12. Benign prostatic hypertrophy. 13. Overweight state. 14. Asbestosis. PLAN: 1. Continue vent support. 2. Continue antibiotics. 3. Will have 2D echocardiogram. 4. Monitor closely in the ICU. Will need continued management. Critical care time more than 35 minutes. Job#: [id number]
--- NOTE | 2017-11-20 21:12 | Progress Note ---
DATE: November 20, 2017 TIME: 2:00 p.m. OVERNIGHT: Patient remains intubated. REVIEW OF SYSTEMS: Unobtainable. PHYSICAL EXAMINATION: VITAL SIGNS: Have been reviewed. GENERAL APPEARANCE: Tired-appearing man resting in bed. HEENT: He has ET tube in place. He has NG tube in place as well. CARDIOVASCULAR: Normal S1 and S2. LUNGS: Reduced breath sounds. ABDOMEN: Soft. : He has Daniel in place. EXTREMITIES: Trace edema. SKIN: Dry. PSYCHIATRIC: Flat affect. NEUROLOGICAL: Not interactive, sedated. LABS: Reviewed. MEDICATIONS: Reviewed. ASSESSMENT: This is a 77-year-old man. 1. Acute hypoxemic hypercapnic respiratory failure. 2. Cardiogenic shock. 3. Vts-XQ-zvgpvzlea myocardial infarction. 4. Sepsis. 5. Urinary tract infection. 6. Carbon dioxide narcosis. 7. Carbon dioxide retention. 8. Signs of congestive heart failure. 9. Myasthenia gravis. 10. History of asbestosis. 11. Benign prostatic hypertrophy. 12. Overweight state. PLAN: 1. Continue vent support. 2. Replace electrolytes. 3. Renal function remains stable. 4. Hemoglobin A1c 5.2, does not have diabetes. 5. Troponin increased to 3.627 yesterday. 6. Continue medical management at this time. 7. Follow up cultures. So far all cultures negative today. 8. Continue midodrine, IV aztreonam, and IV vancomycin. 9. Obtain vancomycin trough. 10. Start tube feedings. 11. Follow up labs. Critical care time more than 35 minutes. Job#: [id number]
[2017-11-20] MEDS: VANCOMYCIN 1GM/NS 250 ML 250 ML IV SCH (21:25)
--- NOTE | 2017-11-20 23:16 | Progress Note ---
DATE: November 20, 2017 CARDIOLOGY PROGRESS NOTE SUBJECTIVE: Patient remains intubated and sedated. He is on dopamine 4 mcg/kg per minute. OBJECTIVE VITAL SIGNS: Temperature 102.7, pulse 103, respiratory rate 15, blood pressure 100, on mechanical ventilation. GENERAL: Intubated and sedated, no acute distress. LUNGS: Decreased breath sounds on the left, otherwise clear to auscultation. No wheezes or crackles. CARDIOVASCULAR: Normal rate. Tachycardic. Normal S1/S2. No murmur. ABDOMEN: Soft, nontender. EXTREMITIES: No edema. CARDIAC MEDICATIONS 1. Dopamine 4 mcg/kg per minute. 2. Midodrine 7.5 mg p.o. t.i.d. 3. Atorvastatin 40 mg p.o. daily. LABS: WBC 6.42, hemoglobin 9.9, hematocrit 29.3, platelets 146,000. Sodium 143, potassium 3.7, chloride 106, CO2 29, BUN 19, creatinine 0.69. CHEST X-RAY: Increased left basilar opacities. Likely a combination of moderate pleural fluid and atelectasis/consolidation. Small right pleural effusion, suspected underlying edema. TELEMETRY: Sinus tachycardia. IMPRESSIONS 1. Acute hypercarbic respiratory failure. 2. Non-ST elevation myocardial infarction. 3. Suspect pneumonia. 4. Anemia. 5. BPH, status post GreenLight photovaporization of the prostate. RECOMMENDATIONS: Continue supportive care. Ventilator management per pulmonary. With regards to patient's non-ST elevation myocardial infarction, he will be continued on statin. Beta-blockers are currently contraindicated in the presence of ongoing pressor support. As patient is requiring continuous bladder irrigation for his recent prostate operation, anticoagulation is being held. Start low-dose aspirin. Echocardiogram is pending. He will require ischemic evaluation once he has recovered from his acute illness. His prognosis is guarded. In the meantime, antibiotics per medicine. Thank you for this consult. We will continue to follow. Job#: [id number] CQ MTDD
[2017-11-21] VITALS (88 sets, daily range): BP systolic 82–147; BP diastolic 40–85
[2017-11-21] MEDS: LEVALBUTEROL HCL SOLN NEBU 0.63 MG/3 ML NEB INH SCH ×4 (01:35→19:10)
[2017-11-21] MEDS: MIDAZOLAM HCL 25 MG in SODIUM CHLORIDE 0.9% 50ML 45 ML IV PRN (02:36)
[2017-11-21 05:03] LABS: BASOPHILS % 0.1 % (0.0-1.0); EOSINOPHILS % 0.3 % (0.0-6.0); HEMATOCRIT 28.9 % (38.2-49.6); HEMOGLOBIN 9.5 g/dL (14.0-18.0); LYMPHOCYTES # (AUTO) 0.8 (1.0-3.2); LYMPHOCYTES % 10.5 % (18.0-39.1); MEAN CORPUSCULAR HEMOGLOBIN 31.3 pg (28-32); MEAN CORPUSCULAR HGB CONC 32.9 g/dL (31-35); MEAN CORPUSCULAR VOLUME 95.1 fL (81-99); MONOCYTES # (AUTO) 0.8 (0.2-0.8); MONOCYTES % 10.2 % (4.4-11.3); NEUTROPHILS # (AUTO) 6.2 (2.1-6.9); NEUTROPHILS % 78.5 % (38.7-80.0); PLATELET COUNT 168 x10e3/uL (140-360); RED BLOOD COUNT 3.04 x10e6/uL (4.3-5.7); RED CELL DISTRIBUTION WIDTH 12.7 % (11.7-14.4)
[2017-11-21] MEDS: AZTREONAM 1 GM VIAL IV SCH ×3 (05:31→21:04)
[2017-11-21 05:32] LABS: ALANINE AMINOTRANSFERASE 21 IU/L (0-55); ALBUMIN 2.2 g/dL (3.5-5.0); ALBUMIN/GLOBULIN RATIO 0.7 (0.8-2.0); ALKALINE PHOSPHATASE 54 IU/L (40-150); ANION GAP 9.7 mmol/L (8-16); BLOOD UREA NITROGEN 26 mg/dL (7-26); BUN/CREATININE RATIO 38 (6-25); CALCIUM 8.1 mg/dL (8.4-10.2); CARBON DIOXIDE 29 mmol/L (22-29); CHLORIDE 108 mmol/L (98-107); CREATININE, SERUM 0.68 mg/dL (0.72-1.25); EST GLOMERULAR FILTRATION RATE > 60 ML/MIN (60-); GLUCOSE 122 mg/dL (74-118); POTASSIUM 3.7 mmol/L (3.5-5.1); SODIUM 143 mmol/L (136-145)
--- NOTE | 2017-11-21 06:33 | Diagnostic Imaging Report ---
EXAMINATION: CHEST SINGLE (PORTABLE) INDICATION: Respiratory failure COMPARISON: 11/20/2017 FINDINGS: TUBES and LINES: Endotracheal tube is visualized with distal tip at the level of the mid trachea 4.6 cm above the gilbert. NG tube is stable in good position. Left upper extremity PICC line is visualized with distal catheter tip at the level of the left innominate vein LUNGS: Lungs are not well inflated. Persistent confluent opacity of the left lower lobe compatible with atelectasis versus pneumonia PLEURA: Left pleural effusion present. HEART AND MEDIASTINUM: Cardiac size is mildly enlarged. There are atherosclerotic calcifications within the aorta. BONES AND SOFT TISSUES: No acute osseous lesion. Soft tissues are unremarkable. UPPER ABDOMEN: No free air under the diaphragm. IMPRESSION: 1. Persistent left lower lobe airspace opacity compatible with pneumonia versus atelectasis. Small left pleural effusion. 2. Left upper extremity PICC line in suboptimal position Signed by: Dr. Abhishek Nix M.D. on 11/21/2017 6:29 AM
--- NOTE | 2017-11-21 07:04 | Progress Note ---
DATE: November 21, 2017 TIME: 6:37 a.m. OVERNIGHT: No change. REVIEW OF SYSTEMS: Unobtainable. PHYSICAL EXAMINATION VITAL SIGNS: Reviewed. GENERAL: A tired-appearing man resting in bed. HEENT: ET tube in place. CARDIOVASCULAR: Normal S1 and S2. LUNGS: Moderate breath sounds. ABDOMEN: Soft and nontender. : He has a Daniel in place. EXTREMITIES: No edema. SCD bilaterally. SKIN: Dry. PSYCHIATRIC: Unable to assess. NEUROLOGIC: He is sedated. LABS: Reviewed. MEDICATIONS: Reviewed. ASSESSMENT: A 77-year-old man with: 1. Acute hypoxic and hypercapnic respiratory failure. 2. Cardiogenic shock and sup-IW-rncfqssdo myocardial infarction. 3. Sepsis. 4. Urinary tract infection. 5. CO2 narcosis and retention. 6. Signs of congestive heart failure. 7. Myasthenia gravis. 8. History of asbestosis. 9. BPH. 10. Overweight state. 11. Healthcare-associated pneumonia. PLAN 1. Continue vent support. The patient is currently on 55% FIO2 oxygen. 2. Continue medical management of his bjo-DI-pwsbqqlwy CT at this time. 3. Continue IV aztreonam and IV vancomycin. Follow up vancomycin trough. 4. Continue midodrine. 5. Continue pyridostigmine. 6. Chest x-ray this morning shows persistent left lower lobe airspace opacity consistent with pneumonia. 7. Troponin peak was 3.67. 8. Follow up echocardiogram report. 9. Continue SCD and PPI for prophylaxis. 10. Vancomycin trough yesterday was 4.1. Follow up repeat. Critical care time more than 35 minutes. Job#: [id number] [place]
[2017-11-21] MEDS: DOCUSATE SODIUM 100 MG CAP PO SCH ×2 (09:00→16:23)
[2017-11-21] MEDS: BISACODYL 5 MG TAB EC PO SCH (09:00)
[2017-11-21] MEDS: PYRIDOSTIGMINE BROMIDE 60 MG TAB PO SCH (09:19)
[2017-11-21] MEDS: PANTOPRAZOLE 40 MG 10ML VIAL IV SCH ×2 (09:19→20:22)
[2017-11-21] MEDS: SODIUM CHLORIDE 0.9% 1000ML 1,000 ML IV SCH ×3 (09:19→20:23)
[2017-11-21] MEDS: ATORVASTATIN 40 MG TAB NG SCH (09:19)
[2017-11-21] MEDS: MIDODRINE 2.5 MG TAB PO SCH ×3 (09:19→16:23)
[2017-11-21] MEDS: BISACODYL 10 MG SUPP PR PRN (09:20)
--- NOTE | 2017-11-21 10:13 | Diagnostic Imaging Report ---
PROCEDURE: A single AP view of the chest. COMPARISON: Chest radiograph 11/20/17. INDICATIONS: TUBE READJUSTMENT FINDINGS: Lines/tubes: ET tube terminates 7.5 cm above the gilbert. Left PICC with tip obscured by motion and body habitus, but likely terminating near the cavoatrial junction. Interval placement of enteric tube coursing into the stomach, the tip is not included in the field of view. Lungs/pleura: Low lung volumes. Mild pulmonary interstitial opacity. Left mid and lower lung zone opacity persists. Moderate left pleural effusion. No evidence of pneumothorax. Heart and mediastinum: The cardiomediastinal silhouette is unchanged. Bones: No acute bony abnormality. IMPRESSION: Lines and tubes as above. Interval placement of enteric tube coursing into the stomach, the tip is not included in the field of view. Persistent mild pulmonary interstitial edema. Moderate left pleural effusion with left mid and lower lung zone opacities which could reflect atelectasis and/or pneumonia. Dictated by: NORM SALEH M.D. on 11/21/2017 at 10:20 Electronically approved by: NORM SALEH M.D. on 11/21/2017 at 10:20
--- NOTE | 2017-11-21 10:59 | Progress Note ---
DATE: November 21, 2017 CARDIOLOGY PROGRESS NOTE SUBJECTIVE: Patient remains intubated and sedated on dopamine 4 mcg/kg per minute. OBJECTIVE VITAL SIGNS: Temperature 97.5 degrees, pulse 73, respiratory rate 19, blood pressure 105/47, oxygen saturation 100% on mechanical ventilation. GENERAL: Intubated and sedated, no acute distress. LUNGS: Decreased breath sounds on the left, otherwise clear to auscultation. No wheezes or crackles. CARDIOVASCULAR: Normal rate. Irregular rhythm. Normal S1 and S2. No murmur. ABDOMEN: Soft, nontender. EXTREMITIES: No edema. CARDIAC MEDICATIONS 1. Atorvastatin 40 mg p.o. daily. 2. Midodrine 7.5 mg p.o. t.i.d. 3. Dopamine 4 mcg/kg per minute. LABORATORY DATA: WBC 7.83, hemoglobin 9.5, hematocrit 28.9, platelets 168. Sodium 143, potassium 3.7, chloride 108, CO2 of 29, BUN 26, creatinine 0.68, troponin 1.414. TELEMETRY: Normal sinus rhythm with PACs. ECHOCARDIOGRAM: With mild LV dilation and mild concentric left ventricular hypertrophy. Overall left ventricular systolic function is moderately impaired with EF between 35% and 40%. IMPRESSION 1. Acute hypercarbic respiratory failure. 2. Non-ST elevation myocardial infarction. 3. Acute systolic heart failure, ejection fraction 35-40%. 4. Pneumonia, suspected. 5. Anemia. 6. Benign prostatic hypertrophy, status post GreenLight photovaporization of the prostate. RECOMMENDATIONS: Continue current cardiac medications. Will ask if patient can be started on low-dose aspirin; however, due to patient's continuous bladder irrigation and recent prostate operation, no anticoagulation is being given at this time. No beta-blockers can be given due to ongoing pressor support. Continue supportive care. Ventilator management per pulmonary. Ins and outs are inaccurate due to continuous bladder irrigation. Patient may benefit from gentle diuretics to keep patient net even. Antibiotics per medicine. Thank you for this consult. We will continue to follow. Job#: [id number] LPA
[2017-11-21] MEDS: ACETAMINOPHEN 325 MG TAB PO PRN (11:17)
[2017-11-21] MEDS ORDERED: POTASSIUM CHLORIDE 20MEQ/15ML UDC NG NR (12:30)
--- NOTE | 2017-11-21 12:40 | Progress Note ---
DATE: November 21, 2017 UROLOGY PROGRESS NOTE The age of the patient is 77, sex male. The patient has a fever still of 101.1. He remains on the ventilator. The results of the cultures and sensitivities are still pending. As far as I am concerned, if the patient needs to be put on anticoagulants of some sort, he can because it is easier to replace blood than myocardium. However, if he goes on anticoagulants that does increase the risk of him hemorrhaging from his prostate around the catheter. Meanwhile, physical examination reveals he is on the ventilator. His abdomen is soft. The catheter is draining clear-colored urine with continuous bladder irrigation at a slow rate. His hemoglobin is 9.5, hematocrit 28.9, white blood cell count 7.83. His BUN is 26 and creatinine is 0.68. As far as I am concerned with the catheter, the time I will remove the catheter is when the patient is off the ventilator and ambulatory. Job#: [id number]
[2017-11-21] MEDS ORDERED: LATANOPROST2.5 ML OP (12:48)
--- NOTE | 2017-11-21 16:31 | Diagnostic Imaging Report ---
Procedure: Right internal jugular central venous catheter placement with ultrasound guidance dredge operator: Dr. Sravanthi Rodriguez Pre-operative diagnosis: Requiring central venous access Post-operative diagnosis: Status post central venous access Conscious Sedation: None The patient's heart rate and pulse oximetry were continuously monitored by the ICU nurse. Additional Medications: Lidocaine 1% for local anesthesia Fluoroscopy time: 0 Dose-area Product: 0 mGycm2. Frontal Air Kerma: 0 Contrast used: 0 Estimated blood loss: Minimal Specimens: None Implants: 7 [place] 16 cm triple-lumen central venous catheter DISCUSSION: Informed consent was obtained from the patient's healthcare proxy and documented in the medical record. The patient was placed in the supine position. Preliminary sonographic evaluation of the right neck confirmed a patent and compressible right internal jugular vein. The neck was then prepped and draped in a standard sterile fashion. Subsequently, 1% lidocaine was infiltrated into the skin and subcutaneous tissues for local anesthesia. Then under continuous sonographic guidance a micropuncture needle was advanced into the right internal jugular vein. A permanent sonographic image was stored in the medical record. An .018'' wire was placed and upsized to an .035'' Amplatz wire using micropuncture sheath. The .035'' wire was advanced centrally with continuous cardiac rhythm monitoring. The micropuncture sheath was removed. The tract was dilated. Then, a 7 [place], 16 cm triple-lumen central venous catheter was advanced over the wire. The wire was then removed. Each lumen was tested and showed adequate bidirectional flow. The catheter was secured to the skin with Monocryl, flushed with sterile saline, and covered by a sterile dressing. The patient tolerated the procedure well without immediate duplication. FINDINGS: Patent right internal jugular vein. IMPRESSION: Placement of a 7 [place] 16 cm triple-lumen central venous catheter by a right internal jugular approach under sonographic guidance. A postprocedure chest radiograph will be obtained to confirm line positioning prior to use. Signed by: Dr. Sravanthi Rodriguez MD on 11/21/2017 4:28 PM
--- NOTE | 2017-11-21 16:41 | Diagnostic Imaging Report ---
Examination: Single AP view of the chest. COMPARISON: Portable chest 11/21/2017 INDICATION: Central line placement IMPRESSION: 1. Lines and Tubes: Interval placement of right IJ line with distal tip projecting in the region of the cavoatrial junction/proximal right atrium. Other lines and tubes are unchanged. 2. Otherwise, no interval change from the prior exam Signed by: Dr. Tony Ruiz M.D. on 11/21/2017 4:38 PM
--- NOTE | 2017-11-21 19:19 | Diagnostic Imaging Report ---
EXAMINATION: CT scan of the chest without contrast. TECHNIQUE: Spiral CT images of the chest were performed from the lung apices to the level of the adrenal glands. No intravenous contrast was administered per physician's request. Coronal and sagittal reformatted images were obtained. COMPARISON: AP chest 11/21/2017 CLINICAL HISTORY:Evaluate pneumonia DISCUSSION: ABSENCE OF INTRAVENOUS CONTRAST DECREASES SENSITIVITY FOR DETECTION OF FOCAL LESIONS AND VASCULAR PATHOLOGY. LINES/TUBES: Tracheostomy tube in place. Enteric tube in the stomach. Distal tip not imaged. Left-sided PICC line with distal tip in the proximal SVC. Right IJ line with distal tip in the distal SVC LUNGS AND AIRWAYS: Consolidation with air bronchograms involving the left lower lobe and apical posterior segment of the left upper lobe. Mild compressive atelectasis of the right lower lobe. Rest of the aerated lungs show no consolidation, masses or pulmonary nodules. Central airways are clear, without endobronchial lesions PLEURA: Small right pleural effusion. Trace left pleural effusion. No pneumothorax. HEART AND MEDIASTINUM: Thyroid is unremarkable. Mild to moderate cardiomegaly. Trace pericardial effusion. Aorta is nonaneurysmal. Main pulmonary artery is enlarged, measuring 3.5 cm. LYMPH NODES: No enlarged mediastinal or axillary adenopathy. Difficult to evaluate for hilar adenopathy without intravenous contrast ABDOMEN: Limited unenhanced views of the upper abdomen show no abnormality within the visualized liver, spleen, pancreas, or kidneys. The visualized portions of the adrenal glands are unremarkable. BONES AND SOFT TISSUES: No aggressive lytic lesions. Multilevel degenerative disc changes in the thoracic spine. Generalized osteopenia. IMPRESSION: 1. Consolidation with air bronchograms involving the left lower lobe and apical posterior segment of the left upper lobe, consistent with pneumonia, in the appropriate clinical setting. 2. Small right pleural effusion with associated mild compressive atelectasis of the right lower lobe. 3. Trace left pleural effusion. 4. Mild to moderate cardiomegaly with trace pericardial effusion. 5. Enlarged main pulmonary artery suggesting pulmonary hypertension. Signed by: Dr. Tony Ruiz M.D. on 11/21/2017 7:15 PM
[2017-11-21] MEDS: PROPOFOL IV EMULSION 10MG/ML 100 ML IV SCH (19:30)
[2017-11-21] MEDS: VANCOMYCIN 1GM/NS 250 ML 250 ML IV SCH (20:22)
[2017-11-22] VITALS (82 sets, daily range): BP systolic 87–137; BP diastolic 43–75
[2017-11-22] MEDS: ACETAMINOPHEN 325 MG TAB PO PRN (00:43)
[2017-11-22] MEDS: LEVALBUTEROL HCL SOLN NEBU 0.63 MG/3 ML NEB INH SCH ×4 (02:40→19:00)
[2017-11-22] MEDS: SODIUM CHLORIDE 0.9% 1000ML 1,000 ML IV SCH ×3 (04:48→21:52)
[2017-11-22 04:55] LABS: BASOPHILS % 0.1 % (0.0-1.0); EOSINOPHILS % 0.3 % (0.0-6.0); HEMATOCRIT 27.4 % (38.2-49.6); HEMOGLOBIN 8.9 g/dL (14.0-18.0); LYMPHOCYTES # (AUTO) 0.7 (1.0-3.2); LYMPHOCYTES % 8.4 % (18.0-39.1); MEAN CORPUSCULAR HEMOGLOBIN 31.3 pg (28-32); MEAN CORPUSCULAR HGB CONC 32.5 g/dL (31-35); MEAN CORPUSCULAR VOLUME 96.5 fL (81-99); MONOCYTES # (AUTO) 0.8 (0.2-0.8); MONOCYTES % 9.5 % (4.4-11.3); NEUTROPHILS # (AUTO) 6.4 (2.1-6.9); NEUTROPHILS % 81.4 % (38.7-80.0); PLATELET COUNT 198 x10e3/uL (140-360); RED BLOOD COUNT 2.84 x10e6/uL (4.3-5.7)
[2017-11-22 05:32] LABS: ALANINE AMINOTRANSFERASE 19 IU/L (0-55); ALBUMIN 2.1 g/dL (3.5-5.0); ALBUMIN/GLOBULIN RATIO 0.7 (0.8-2.0); ALKALINE PHOSPHATASE 56 IU/L (40-150); ANION GAP 8.7 mmol/L (8-16); BLOOD UREA NITROGEN 27 mg/dL (7-26); BUN/CREATININE RATIO 38 (6-25); CARBON DIOXIDE 28 mmol/L (22-29); CHLORIDE 108 mmol/L (98-107); CREATININE, SERUM 0.71 mg/dL (0.72-1.25); EST GLOMERULAR FILTRATION RATE > 60 ML/MIN (60-); GLUCOSE 139 mg/dL (74-118); POTASSIUM 3.7 mmol/L (3.5-5.1); SODIUM 141 mmol/L (136-145)
[2017-11-22] MEDS: AZTREONAM 1 GM VIAL IV SCH ×3 (05:59→23:00)
[2017-11-22] MEDS: MIDODRINE 2.5 MG TAB PO SCH ×3 (07:49→15:56)
[2017-11-22] MEDS: PANTOPRAZOLE 40 MG 10ML VIAL IV SCH ×2 (07:49→22:00)
[2017-11-22] MEDS: PYRIDOSTIGMINE BROMIDE 60 MG TAB PO SCH (08:21)
[2017-11-22] MEDS: ATORVASTATIN 40 MG TAB NG SCH (08:21)
[2017-11-22] MEDS: DOCUSATE SODIUM 100 MG CAP PO SCH ×2 (08:21→15:53)
[2017-11-22] MEDS: BISACODYL 5 MG TAB EC PO SCH (08:21)
[2017-11-22] MEDS ORDERED: ARTIFICIAL TEARS (OPTH) 15 ML BTL OU PRN (11:00)
--- NOTE | 2017-11-22 12:42 | Consultation ---
DATE OF CONSULTATION: November 22, 2017 INFECTIOUS DISEASE CONSULTATION ATTENDING PHYSICIAN: Dr. Lenard Shrestha. REASON FOR CONSULTATION: Fever and pneumonia. Thank you, Dr. Christensen and Dr. Coello, for asking me to see this patient. HISTORY OF PRESENT ILLNESS: Patient is a 77-year-old man referred for fever and pneumonia. He is unable to give history because he is sedated and intubated. The chart review showed that he was admitted on November 17, 2017, for elective surgery. He successfully underwent a GreenLight photovaporization of the prostate. His postoperative course was complicated by hypercapnic respiratory failure and ukc-SL-icqnpbk-elevation myocardial infarction. The patient was intubated and moved to the ICU. He has been evaluated by the cardiology service. He has been having a low-grade fever for a few days. 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 PAST SURGICAL HISTORY: Bilateral trabeculoplasty of both eyes, excision of malignant melanoma, excision of spindle cell sarcoma. ALLERGIES: CEFADROXIL, WHICH CAUSED HIVES; HYDROCODONE-ACETAMINOPHEN, WHICH CAUSED VAGAL RESPONSE. MEDICATIONS: See MAR. The current antibiotics are Azactam 1 gram IV piggyback q.8 hours and vancomycin 1 gram IV piggyback daily. IMMUNIZATION: Pneumococcal vaccination status cannot be verified at this time. FAMILY HISTORY: The father had glaucoma and Alzheimer's disease. SOCIAL HISTORY: He smokes half a pack of cigarettes a day. REVIEW OF SYSTEMS: Unable to obtain. PHYSICAL EXAMINATION: GENERAL: Sedated. VITALS: T-max 101.1, pulse 81, respiratory rate 15, blood pressure 127/67, weight 212 pounds. HEENT: Atraumatic. There is no icterus or injection of conjunctivae. There is no ear or nasal discharge. Orally intubated. NECK: Supple. No lymphadenopathy. LUNGS: Decreased breath sounds bilaterally. HEART: Normal S1 and S2. ABDOMEN: Soft. EXTREMITIES: There is no edema, clubbing or cyanosis. SKIN: There is no acute erythema. LEAD EMBEDDED SOFTWARE ENGINEER: Sedated. LABORATORY AND DIAGNOSTICS: WBC 7,809, hemoglobin 8.9, platelets 198,000, neutrophil 81.4, lymphocyte 8.4, mono 9.5, eosinophil 0.3, basophil 0.1. BUN 27, creatinine 0.71. AST 23, ALT 19, alk phos 56, total bilirubin 0.5. November 20, 2017 vancomycin trough 4.1. Chest CT scan showed consolidation with air bronchogram involving the left lower lobe and apical posterior segment of the left upper lobe consistent with pneumonia, small right pleural effusion and trace left pleural effusion. IMPRESSION: 1. Pneumonia ?aspiration. 2. Hypercapnic respiratory failure. 3. Kbh-YL-gwssaws-elevation myocardial infarction. 4. Asbestosis. 5. Myasthenia gravis. 6. Tobacco use disorder PLAN: 1. Await final tracheal aspirate and blood culture results. 2. Adjust vancomycin dose. 3. Smoking cessation counseling is to offered to the patient when awake and alert. Job#: [id number] EV MTDD
[2017-11-22] MEDS: ASPIRIN 81 MG CHEW TAB PO SCH (13:24)
[2017-11-22] MEDS: HEPARIN SOD (PORCINE) 5,000 UNIT/ML VIAL SC SCH (13:25)
[2017-11-22] MEDS: METRONIDAZOLE 500MG/NS 100ML 100 ML IV SCH ×2 (14:02→22:00)
[2017-11-22] MEDS: VANCOMYCIN HCL 1.25 GM in SODIUM CHLORIDE 0.9% 250ML 300 ML IV SCH (14:07)
--- NOTE | 2017-11-22 14:54 | Progress Note ---
DATE: November 22, 2017 CARDIOLOGY PROGRESS NOTE SUBJECTIVE: The patient remains intubated. He is not on sedation, but has not woken up. He only withdrawals to painful stimuli. He is now off dopamine. OBJECTIVE VITALS: Temperature 98.4 degrees, pulse 78, respiratory rate 21, blood pressure 132/65, oxygen saturation 99% on mechanical ventilation. GENERAL: Intubated and not responsive. Off sedation. No acute distress. LUNGS: Decreased breath sounds on the left. Otherwise, clear to auscultation. No wheezes or crackles. CARDIOVASCULAR: Normal rate and regular rhythm. No murmur. Normal S1 and S2. ABDOMEN: Soft and nontender. EXTREMITIES: No edema. CARDIAC MEDICATIONS 1. Aspirin 81 mg p.o. daily. 2. Midodrine 7.5 mg p.o. t.i.d. 3. Atorvastatin 40 mg p.o. at bedtime. LABS: WBC 7.89, hemoglobin 8.9, hematocrit 27.4, and platelets 198,000. Sodium 141, potassium 3.7, chloride 108, CO2 28, BUN 27, creatinine 0.71. Telemetry is normal sinus rhythm. IMPRESSION 1. Acute hypercarbic respiratory failure. 2. Edi-UU-lstkqrhvc myocardial infarction. 3. Acute systolic heart failure: Ejection fraction 35% to 40%. 4. Suspect pneumonia. 5. Anemia. 6. BPH: Status post green light photovaporization of the prostate. RECOMMENDATIONS: Continue current cardiac medications. The patient was started on low-dose aspirin. The patient is now off pressors. Monitor blood pressure closely. If stable, could consider initiation of low-dose beta blockade. In the meantime, continue supportive care. Ventilator management per pulmonary. Antibiotics per infectious disease. The patient will need ischemic evaluation once he has recovered from his acute illness. Thank you for this consult. We will continue to follow. Job#: [id number] [place]
[2017-11-22] MEDS: PROPOFOL IV EMULSION 10MG/ML 100 ML IV SCH (15:53)
--- NOTE | 2017-11-22 19:56 | Progress Note ---
DATE: November 22, 2017 The patient remains in the intensive care unit. He is still on the ventilator and attempts are being made to try and wean him off the ventilator at this time. Meanwhile, his abdomen is soft. The continuous bladder irrigation is running at a slow rate and he is having clear-colored urine with the continuous bladder irrigation at a slow rate. There is no evidence of epididymitis and his abdomen is soft. His hemoglobin was 8.9, hematocrit 27.4, platelet count of 198,000, BUN 27, creatinine 0.71. My plan for this time is to leave him on a continuous bladder irrigation and when he is off the ventilator and ambulatory, I will then consider removing the Daniel catheter for trial of voiding. Job#: [id number] PERCY
[2017-11-23] VITALS (77 sets, daily range): BP systolic 91–141; BP diastolic 49–83
[2017-11-23] MEDS: VANCOMYCIN HCL 1.25 GM in SODIUM CHLORIDE 0.9% 250ML 300 ML IV SCH ×3 (00:15→11:45)
[2017-11-23] MEDS: LEVALBUTEROL HCL SOLN NEBU 0.63 MG/3 ML NEB INH SCH ×4 (01:50→18:45)
[2017-11-23 04:46] LABS: HEMATOCRIT 25.2 % (38.2-49.6); MEAN CORPUSCULAR HEMOGLOBIN 30.9 pg (28-32); MEAN CORPUSCULAR HGB CONC 31.7 g/dL (31-35); MEAN CORPUSCULAR VOLUME 97.3 fL (81-99); PLATELET COUNT 232 x10e3/uL (140-360); RED BLOOD COUNT 2.59 x10e6/uL (4.3-5.7); RED CELL DISTRIBUTION WIDTH 13.1 % (11.7-14.4)
[2017-11-23 05:10] LABS: ANION GAP 9.7 mmol/L (8-16); BLOOD UREA NITROGEN 26 mg/dL (7-26); BUN/CREATININE RATIO 41 (6-25); CALCIUM 7.9 mg/dL (8.4-10.2); CARBON DIOXIDE 29 mmol/L (22-29); CHLORIDE 111 mmol/L (98-107); CREATININE, SERUM 0.64 mg/dL (0.72-1.25); EST GLOMERULAR FILTRATION RATE > 60 ML/MIN (60-); GLUCOSE 123 mg/dL (74-118); POTASSIUM 3.7 mmol/L (3.5-5.1); SODIUM 146 mmol/L (136-145)
[2017-11-23] MEDS: METRONIDAZOLE 500MG/NS 100ML 100 ML IV SCH ×3 (05:34→21:55)
[2017-11-23] MEDS: AZTREONAM 1 GM VIAL IV SCH ×3 (05:34→21:55)
--- NOTE | 2017-11-23 08:05 | Progress Note ---
DATE: November 23, 2017 TIME: 7:43 a.m. OVERNIGHT: Beginning to wake up. REVIEW OF SYSTEMS: Unobtainable. PHYSICAL EXAMINATION VITAL SIGNS: Reviewed. GENERAL: A tired-appearing man resting in bed. HEENT: ET tube in place. CARDIOVASCULAR: Normal S1 and S2. LUNGS: Moderate breath sounds. ABDOMEN: Soft and nontender. : He has a Daniel in place. EXTREMITIES: SCDs bilaterally. MUSCULOSKELETAL: He has restraints in place. SKIN: Dry. PSYCHIATRIC: Unable to assess. NEUROLOGIC: Not interactive but moving extremities now. LABS: Reviewed. MEDICATIONS: Reviewed. ASSESSMENT: A 77-year-old man. 1. Acute hypoxic and hypercapnic respiratory failure. 2. Cardiogenic shock and iib-TS-lcgfndcpi myocardial infarction. 3. Urinary tract infection. 4. Sepsis. 5. Carbon dioxide narcosis and retention. 6. Signs of congestive heart failure. 7. Myasthenia gravis. 8. History of asbestosis. 9. BPH. 10. Overweight state. 11. Healthcare-associated pneumonia. PLAN 1. Continue vent support. 2. The patient is beginning to wake up. 3. Continue antibiotics per infectious disease. 4. Continue medical management of ime-CE-gkeytsoxc [place]. 5. Echocardiogram shows ejection fraction 35% to 40%. Patient does have systolic congestive heart failure. This is acute exacerbation of systolic CHF. 6. Continue current care in the ICU and await clinical improvement. 7. Critical care time more than 35 minutes. Job#: [id number]
--- NOTE | 2017-11-23 08:06 | Progress Note ---
DATE: November 22, 2017 TIME: 7 a.m. OVERNIGHT: Remains intubated. REVIEW OF SYSTEMS: Unobtainable. PHYSICAL EXAMINATION VITAL SIGNS: Have been reviewed. GENERAL: A tired-appearing man resting in bed. HEENT: ET tube in place. CARDIOVASCULAR: Normal S1 and S2. LUNGS: Moderate breath sounds. ABDOMEN: Soft, nontender and nondistended. : He has a Daniel in place. EXTREMITIES: SCDs bilaterally. SKIN: Dry. PSYCHIATRIC: Unable to assess. NEUROLOGIC: Not interactive. LABS: Reviewed. MEDICATIONS: Reviewed. ASSESSMENT: A 77-year-old man with: 1. Acute hypoxic and hypercapnic respiratory failure. 2. Cardiogenic shock and ktf-GD-losddyexg myocardial infarction. 3. Sepsis. 4. Urinary tract infection. 5. CO2 narcosis and retention. 6. Signs of congestive heart failure. 7. Myasthenia gravis. 8. History of asbestosis. 9. BPH. 10. Overweight state. 11. Healthcare-associated pneumonia. PLAN 1. Continue vent support. 2. Awakening of the patient. He has been off sedation for a day now. 3. Continue medical management for gxu-CQ-nkkghcccl MT. 4. Continue IV antibiotics per infectious disease. 5. Continue pyridostigmine. 6. Continue current care in the ICU. Critical care time more than 35 minutes. Job#: [id number] MAURICIO
[2017-11-23] MEDS ORDERED: EYE LUBRICANT OPTH OINT 3.5GM TUBE OP PRN (08:30)
[2017-11-23] MEDS: MIDODRINE 2.5 MG TAB PO SCH ×4 (08:40→16:49)
[2017-11-23] MEDS: ATORVASTATIN 40 MG TAB NG SCH (08:40)
[2017-11-23] MEDS: ASPIRIN 81 MG CHEW TAB PO SCH (08:40)
[2017-11-23] MEDS: DOCUSATE SODIUM 100 MG CAP PO SCH ×2 (08:40→16:28)
[2017-11-23] MEDS: PANTOPRAZOLE 40 MG 10ML VIAL IV SCH ×2 (08:40→21:55)
[2017-11-23] MEDS: PYRIDOSTIGMINE BROMIDE 60 MG TAB PO SCH (08:41)
[2017-11-23] MEDS: HEPARIN SOD (PORCINE) 5,000 UNIT/ML VIAL SC SCH ×2 (08:41→21:55)
[2017-11-23] MEDS: BISACODYL 5 MG TAB EC PO SCH (08:41)
[2017-11-23] MEDS: SODIUM CHLORIDE 0.9% 1000ML 1,000 ML IV SCH ×2 (08:42→21:55)
--- NOTE | 2017-11-23 11:53 | Progress Note ---
DATE: November 23, 2017 CARDIOLOGY PROGRESS NOTE SUBJECTIVE: The patient remains intubated, off sedation, not responsive or following commands yet. REVIEW OF SYSTEMS: Could not be completed as the patient is intubated and not responding. OBJECTIVE VITAL SIGNS: Temperature 98.3, pulse 85, respiratory rate 16, blood pressure 134/72, satting 97% on mechanical ventilator. GENERAL: Elderly, white man in no acute distress. Intubated and sedated. CARDIOVASCULAR: Regular rate and rhythm. No murmurs, rubs or gallops. Palpable carotid pulses. Palpable radial pulses. Pedal pulses are diminished. LUNGS: Anterior exam, limited auscultation. Mechanical ventilation sounds. Otherwise, clear to auscultation. ABDOMEN: Soft, nondistended. No masses. NEURO AND PSYCH: Patient is not responding to command or responding to verbal stimuli. CARDIAC MEDICATIONS: Reviewed. LABORATORY DATA: Reviewed. IMAGING DATA: Reviewed. TELEMETRY DATA: Reviewed. Shows normal sinus rhythm. ASSESSMENT AND PLAN 1. Acute hypercarbic respiratory failure. 2. ST-elevation myocardial infarction. 3. Acute systolic heart failure with ejection fraction 35% to 40%. 4. Pneumonia. 5. Anemia. 6. BPH, status post GreenLight photovaporization of the prostate. RECOMMENDATIONS: Continue current cardiac medications including aspirin. Will monitor blood pressure closely. Will start low-dose beta anand as blood pressure tolerates. Continue supportive care. If the patient's mental status recovers and acute illness improves, the patient will need ischemic evaluation likely with cardiac catheterization. Currently, there is no plan for this. Thank you for this consult. We will follow closely. Job#: [id number]
[2017-11-23] MEDS ORDERED: FUROSEMIDE INJ 10 MG/ML 2 ML VIAL IV NR (12:00)
[2017-11-23] MEDS ORDERED: POTASSIUM CHLORIDE 20MEQ/15ML UDC NG ONE (12:15)
--- NOTE | 2017-11-23 17:27 | Progress Note ---
DATE: November 23, 2017 The patient remains on the ventilator on the 7th postoperative day. He seems to be responding to tactile stimuli and to verbal stimuli, but he still just making up slowly. His hemoglobin is 8.0, hematocrit 25.2, BUN 26, creatinine 0.64. His abdomen is soft. The catheter efflux is clear. There is no evidence of epididymitis at this time. The continuous bladder irrigation continues to run slowly. My plan for this time is to leave the catheter in place and not remove it until he is extubated and ambulatory. Job#: [id number] VAS
[2017-11-23] MEDS: PROPOFOL IV EMULSION 10MG/ML 100 ML IV SCH ×2 (19:14→23:53)
[2017-11-24] VITALS (59 sets, daily range): BP systolic 100–166; BP diastolic 42–88
[2017-11-24] MEDS: LEVALBUTEROL HCL SOLN NEBU 0.63 MG/3 ML NEB INH SCH ×4 (02:05→18:44)
[2017-11-24] MEDS: PROPOFOL IV EMULSION 10MG/ML 100 ML IV SCH ×2 (04:35→19:40)
[2017-11-24] MEDS: SODIUM CHLORIDE 0.9% 1000ML 1,000 ML IV SCH (04:45)
[2017-11-24 04:53] LABS: HEMATOCRIT 25.8 % (38.2-49.6); HEMOGLOBIN 8.3 g/dL (14.0-18.0); MEAN CORPUSCULAR HEMOGLOBIN 31.6 pg (28-32); MEAN CORPUSCULAR HGB CONC 32.2 g/dL (31-35); MEAN CORPUSCULAR VOLUME 98.1 fL (81-99); PLATELET COUNT 295 x10e3/uL (140-360); RED BLOOD COUNT 2.63 x10e6/uL (4.3-5.7); RED CELL DISTRIBUTION WIDTH 13.2 % (11.7-14.4)
[2017-11-24] MEDS: METRONIDAZOLE 500MG/NS 100ML 100 ML IV SCH ×3 (05:05→23:25)
[2017-11-24] MEDS: AZTREONAM 1 GM VIAL IV SCH ×2 (05:05→14:54)
[2017-11-24 05:14] LABS: INR 1.4; PROTHROMBIN TIME 16.1 seconds (11.9-14.5)
[2017-11-24 05:15] LABS: PARTIAL THROMBOPLASTIN TIME 39.4 seconds (23.8-35.5)
[2017-11-24 05:24] LABS: ANION GAP 10.7 mmol/L (8-16); BLOOD UREA NITROGEN 25 mg/dL (7-26); BUN/CREATININE RATIO 40 (6-25); CARBON DIOXIDE 29 mmol/L (22-29); CHLORIDE 114 mmol/L (98-107); CREATININE, SERUM 0.62 mg/dL (0.72-1.25); EST GLOMERULAR FILTRATION RATE > 60 ML/MIN (60-); GLUCOSE 96 mg/dL (74-118); POTASSIUM 3.7 mmol/L (3.5-5.1); SODIUM 150 mmol/L (136-145)
--- NOTE | 2017-11-24 06:38 | Diagnostic Imaging Report ---
EXAMINATION: CHEST SINGLE (PORTABLE) INDICATION: Respiratory failure on ventilation COMPARISON: 11/21/2017 FINDINGS: TUBES and LINES: Endotracheal, NG tube and right IJ central line catheter are stable in good position. LUNGS: Lungs are not well inflated. There are bibasilar atelectasis. There is mild prominence of the central pulmonary vasculature, consistent with pulmonary venous congestion. Diffuse interlobular septi thickening compatible with edema. Confluent airspace opacity in the left lung base PLEURA: Small bilateral pleural effusions HEART AND MEDIASTINUM: Cardiac size is moderately enlarged. There are atherosclerotic calcifications within the aorta. BONES AND SOFT TISSUES: No acute osseous lesion. Soft tissues are unremarkable. UPPER ABDOMEN: No free air under the diaphragm. IMPRESSION: 1. Findings are compatible with with mild worsening of pulmonary edema and central vascular congestion. 2. Confluent left lung base airspace disease for aspiration versus pneumonia Signed by: Dr. Abhishek Nix M.D. on 11/24/2017 6:34 AM
[2017-11-24 07:57] LABS: BLAST CELLS % MANUAL 1; EOSINOPHILS % (MANUAL) 1 % (0-7); LYMPHOCYTES % (MANUAL) 15 % (19-48); MONOCYTES % (MANUAL) 5 % (3.4-9.0); MYELOCYTES % (MANUAL) 2 % (0-0); NEUTROPHILS % (MANUAL) 74 % (40-74)
[2017-11-24 08:00] LABS: ANISOCYTOSIS SLIGHT; RBC MORPHOLOGY COMMENT NORMAL
[2017-11-24] MEDS: MIDODRINE 2.5 MG TAB PO SCH ×3 (08:00→14:57)
[2017-11-24 08:01] LABS: HYPOCHROMASIA MODERATE; PLATELET ESTIMATE ADEQUATE; PLATELET MORPHOLOGY COMMENT FEW LARGE
[2017-11-24] MEDS: DOCUSATE SODIUM 100 MG CAP PO SCH ×2 (09:00→17:00)
[2017-11-24] MEDS: HEPARIN SOD (PORCINE) 5,000 UNIT/ML VIAL SC SCH ×2 (09:05→21:22)
[2017-11-24] MEDS: BISACODYL 5 MG TAB EC PO SCH (09:05)
[2017-11-24] MEDS: ASPIRIN 81 MG CHEW TAB PO SCH (09:05)
[2017-11-24] MEDS: ATORVASTATIN 40 MG TAB NG SCH (09:05)
[2017-11-24] MEDS: PYRIDOSTIGMINE BROMIDE 60 MG TAB PO SCH ×3 (09:05→23:35)
[2017-11-24] MEDS: PANTOPRAZOLE 40 MG 10ML VIAL IV SCH ×2 (09:05→21:20)
[2017-11-24] MEDS ORDERED: FUROSEMIDE INJ 10 MG/ML 2 ML VIAL IV SCH (09:15)
--- NOTE | 2017-11-24 09:28 | Progress Note ---
DATE: November 24, 2017 CARDIOLOGY PROGRESS NOTE SUBJECTIVE: The patient remains intubated. He is more awake. Was able to follow simple commands, and denied chest pain or shortness of breath. OBJECTIVE VITALS: Temperature 98.1 degrees, pulse 79, respiratory rate 23, blood pressure 138/70, oxygen saturation 95% on mechanical ventilation. GENERAL: Intubated and now awake, and following simple commands. No acute distress. LUNGS: Coarse breath sounds bilaterally. No wheezes or crackles appreciated. CARDIOVASCULAR: Normal rate. Regular rhythm. No murmur. Normal S1 and S2. ABDOMEN: Soft and nontender. EXTREMITIES: No edema. CARDIAC MEDICATIONS 1. Aspirin 81 mg p.o. daily. 2. Atorvastatin 40 mg p.o. daily. LABS: WBC 5.74, hemoglobin 8.3, hematocrit 25.8, and platelets 295,000. Sodium 150, potassium 3.7, chloride 114, CO2 29, BUN 25, creatinine 0.62. BNP 356. Chest x-ray findings are compatible with mild worsening of pulmonary edema and central vascular congestion. Confluent left lung base airspace disease for aspiration versus pneumonia. Telemetry is normal sinus rhythm. IMPRESSION 1. Acute hypercarbic respiratory failure. 2. Qch-BN-bdjgfzdll myocardial infarction. 3. Acute systolic heart failure: Ejection fraction 35% to 40%. 4. Suspect pneumonia. 5. Anemia. 6. BPH: Status post green light photovaporization of the prostate. RECOMMENDATIONS: Continue aspirin and statin. We will start low-dose pressors now that the patient is off pressors and hemodynamically stable. In addition, we will add low-dose beta blockade. Continue supportive care. Ventilator management per pulmonary. Antibiotics per infectious disease. The patient will need ischemic evaluation once he has recovered from his acute illness possibly early next week. Thank you for this consult. We will continue to follow. Job#: [id number] MAURICIO
[2017-11-24] MEDS: VANCOMYCIN HCL 1.25 GM in SODIUM CHLORIDE 0.9% 250ML 300 ML IV SCH (11:45)
--- NOTE | 2017-11-24 16:27 | Progress Note ---
DATE: November 24, 2017 UROLOGICAL PROGRESS NOTE An attempt was made to wean the patient off the ventilator. However, he became combative and he cannot be weaned off the ventilator yet. Physical examination reveals the patient appears to be sedated right now. The catheter's continuous bladder irrigation was turned off so they can measure a response to Lasix, and his catheter efflux remained clear with the continuous bladder irrigation turned off. I would still like to leave the bags connected even though it is turned off right now to see how he does. This is so that if he starts bleeding again we could start the continuous bladder irrigation more easily and more rapidly. Meanwhile, I have been contacted by the utilization review people about whether or not he should go to a SNF or an LTAC unit, and from my perspective it is too early to tell yet. The patient, if he is transferred to an LTAC unit or to a SNF unit, would be under the care of Dr. Lenard Shrestha. I discussed the situation with Dr. Shrestha, and the plan at this time is for me to transfer the patient over to Dr. Shrestha so that he will now be the attending physician. It should be noted the patient's hemoglobin was 8.3, hematocrit 25.8, BUN 25, creatinine 0.62. Job#: [id number] EV
[2017-11-24] MEDS: FUROSEMIDE INJ 10 MG/ML 2 ML VIAL IV SCH (18:43)
[2017-11-24] MEDS: LATANOPROST(OPTH) 2.5 ML BTL OP SCH (21:20)
[2017-11-24] MEDS: METOPROLOL TARTRATE 25 MG TAB PO SCH (21:21)
[2017-11-25] VITALS (50 sets, daily range): BP systolic 94–165; BP diastolic 54–94
[2017-11-25] MEDS: VANCOMYCIN HCL 1.25 GM in SODIUM CHLORIDE 0.9% 250ML 300 ML IV SCH ×3 (00:49→23:57)
[2017-11-25] MEDS: LEVALBUTEROL HCL SOLN NEBU 0.63 MG/3 ML NEB INH SCH ×4 (02:15→18:45)
[2017-11-25] MEDS: PROPOFOL IV EMULSION 10MG/ML 100 ML IV SCH ×2 (03:01→23:27)
[2017-11-25 04:46] LABS: HEMATOCRIT 26.8 % (38.2-49.6); HEMOGLOBIN 8.5 g/dL (14.0-18.0); MEAN CORPUSCULAR HEMOGLOBIN 30.5 pg (28-32); MEAN CORPUSCULAR HGB CONC 31.7 g/dL (31-35); MEAN CORPUSCULAR VOLUME 96.1 fL (81-99); PLATELET COUNT 319 x10e3/uL (140-360); RED BLOOD COUNT 2.79 x10e6/uL (4.3-5.7); RED CELL DISTRIBUTION WIDTH 12.9 % (11.7-14.4)
[2017-11-25 05:04] LABS: ANION GAP 14.2 mmol/L (8-16); BLOOD UREA NITROGEN 24 mg/dL (7-26); BUN/CREATININE RATIO 38 (6-25); CALCIUM 8.1 mg/dL (8.4-10.2); CARBON DIOXIDE 32 mmol/L (22-29); CHLORIDE 106 mmol/L (98-107); CREATININE, SERUM 0.63 mg/dL (0.72-1.25); EST GLOMERULAR FILTRATION RATE > 60 ML/MIN (60-); GLUCOSE 103 mg/dL (74-118); POTASSIUM 3.2 mmol/L (3.5-5.1); SODIUM 149 mmol/L (136-145)
[2017-11-25] MEDS: PYRIDOSTIGMINE BROMIDE 60 MG TAB PO SCH ×3 (05:56→21:44)
[2017-11-25] MEDS: METRONIDAZOLE 500MG/NS 100ML 100 ML IV SCH ×3 (05:56→22:58)
[2017-11-25 06:35] LABS: BAND NEUTROPHILS % (MANUAL) 1 %; EOSINOPHILS % (MANUAL) 1 % (0-7); LYMPHOCYTES % (MANUAL) 10 % (19-48); MONOCYTES % (MANUAL) 10 % (3.4-9.0); NEUTROPHILS % (MANUAL) 78 % (40-74)
[2017-11-25 06:36] LABS: PLATELET ESTIMATE ADEQUATE; PLATELET MORPHOLOGY COMMENT NORMAL; RBC MORPHOLOGY COMMENT NORMAL
[2017-11-25] MEDS: MIDODRINE 2.5 MG TAB PO SCH ×3 (08:00→15:51)
--- NOTE | 2017-11-25 08:38 | Diagnostic Imaging Report ---
EXAMINATION: CHEST SINGLE (PORTABLE) INDICATION: \S\resp fialure intubated, pna, chf COMPARISON: Chest x-ray 11/24/2017. FINDINGS: AP view TUBES and LINES: Endotracheal tube, nasogastric tube, right IJ line remain in good position. LUNGS: Lungs are not well inflated. There are bibasilar atelectasis. There is mild prominence of the central pulmonary vasculature, consistent with pulmonary venous congestion. Diffuse interlobular septi thickening compatible with edema. Confluent airspace opacity in the left lung base PLEURA: Small bilateral pleural effusions. HEART AND MEDIASTINUM: Cardiac size is mildly enlarged. There are atherosclerotic calcifications within the aorta. BONES AND SOFT TISSUES: No acute osseous lesion. Soft tissues are unremarkable. UPPER ABDOMEN: No free air under the diaphragm. IMPRESSION: 1. Unchanged mild pulmonary edema and central vascular congestion. 2. Confluent left lung base airspace disease for aspiration versus pneumonia Signed by: Dr. Odilon Shah M.D. on 11/25/2017 8:34 AM
[2017-11-25] MEDS: PANTOPRAZOLE 40 MG 10ML VIAL IV SCH ×2 (08:58→20:45)
[2017-11-25] MEDS: DOCUSATE SODIUM 100 MG CAP PO SCH ×2 (09:00→16:20)
[2017-11-25] MEDS: HEPARIN SOD (PORCINE) 5,000 UNIT/ML VIAL SC SCH ×2 (09:58→20:46)
[2017-11-25] MEDS: FUROSEMIDE INJ 10 MG/ML 2 ML VIAL IV SCH ×2 (09:58→16:56)
[2017-11-25] MEDS: ATORVASTATIN 40 MG TAB NG SCH (10:15)
[2017-11-25] MEDS: ASPIRIN 81 MG CHEW TAB PO SCH (10:15)
[2017-11-25] MEDS: METOPROLOL TARTRATE 25 MG TAB PO SCH ×2 (10:15→20:45)
[2017-11-25] MEDS: BISACODYL 5 MG TAB EC PO SCH (10:15)
[2017-11-25] MEDS ORDERED: POTASSIUM CHLORIDE 10MEQ/100ML 200 ML IV ONE (11:00)
[2017-11-25] MEDS ORDERED: POTASSIUM CHLORIDE 20MEQ/100ML 100 ML ONE (11:53)
--- NOTE | 2017-11-25 12:00 | Progress Note ---
DATE: November 25, 2017 CARDIOLOGY PROGRESS NOTE SUBJECTIVE: Patient is unable to report for, he remains intubated. OBJECTIVE: Temperature 98.1, pulse 65, respiratory rate 18, blood pressure 130/68, and oxygen saturation 98% on mechanical ventilator. CARDIOVASCULAR MEDICATIONS 1. Lasix 20 mg IV b.i.d. 2. Heparin 5000 units subcu every 12 hours. 3. Midodrine 7.5 mg p.o. t.i.d. 4. Metoprolol 12.5 mg p.o. q.12 hours. 5. Aspirin 81 p.o. daily. 6. Atorvastatin 40 p.o. daily. LABS: WBC 6.10, hemoglobin 8.5, hematocrit 26.8, and platelets 319. Sodium 149, potassium 3.2, creatinine 0.63, GFR greater than 60, BNP 268.8. Chest x-ray with unchanged mild pulmonary edema and central vascular congestion, confluent left lung base airspace disease for aspiration versus pneumonia. TELEMETRY: Sinus rhythm with bundle branch block. PHYSICAL EXAMINATION GENERAL: Awake and alert, intubated, off sedation at this time. LUNGS: Coarse breath sounds throughout. Scattered rhonchi and crackles. CARDIOVASCULAR: Irregular rate and rhythm. Distant heart sounds. ABDOMEN: Rounded, soft, nontender. EXTREMITIES: Lower extremities, 2+ pitting edema. IMPRESSION 1. Acute hypercarbic respiratory failure. 2. Non-ST elevation myocardial infarction. 3. Acute systolic heart failure with ejection fraction 35-40%. 4. Pneumonia. 5. Anemia. 6. Benign prostatic hypertrophy, status post GreenLight photovaporization of the prostate. 7. Electrolyte derangement. RECOMMENDATION: Continue aspirin and statin and also initiate a low dose beta-anand. Patient is being weaned off pulmonary clarke. We will continue to monitor closely. Ventilator management per cushion cover inspector. Antibiotic care per infectious disease. Patient will need ischemic evaluation once he has recovered from this acute illness. Monitor very closely and maintain on telemetry at all times. Dictated by: Karlene Gibson NP Job#: [id number] TAMIKA
[2017-11-25] MEDS ORDERED: POTASSIUM CHLORIDE 20MEQ/100ML 100 ML IV ONE (12:15)
--- NOTE | 2017-11-25 13:20 | Progress Note ---
DATE: November 25, 2017 The patient is afebrile today. The catheter efflux from the Daniel catheter is clear. An attempt was made to wean the patient off the ventilator today, but when we got to the T-tube stage, he tried to pull out the T-tube, so it was placed back under the sedation and on the ventilator again. I have discussed the situation with the patient's . I advised her that we have been getting calls from utilization of view by transferring him to an LTAC unit. She was also advised that if we cannot wean him off the ventilator after another week, he may need to have a tracheostomy. Hopefully, another attempt will be made to wean the patient off tomorrow and he will be more cooperative, so that we can get him off the ventilator. However, the family has been advised that if he does have to go to an LTAC unit, Dr. Shrestha would be in charge and they were also advised of the possibility that he might need to have a tracheostomy prior to transfer to an LTAC unit if we cannot get him weaned off the ventilator. Job#: [id number] SCOTTY
[2017-11-25] MEDS: LATANOPROST(OPTH) 2.5 ML BTL OP SCH (20:45)
[2017-11-25] MEDS: AZTREONAM 1 GM/NS 50 ML 50 ML IV SCH (21:44)
[2017-11-26] VITALS (50 sets, daily range): BP systolic 84–167; BP diastolic 47–108
[2017-11-26] MEDS: LEVALBUTEROL HCL SOLN NEBU 0.63 MG/3 ML NEB INH SCH ×4 (03:10→18:50)
[2017-11-26] MEDS: PROPOFOL IV EMULSION 10MG/ML 100 ML IV SCH ×3 (05:36→20:41)
[2017-11-26] MEDS: AZTREONAM 1 GM/NS 50 ML 50 ML IV SCH ×3 (05:57→22:26)
[2017-11-26] MEDS: PYRIDOSTIGMINE BROMIDE 60 MG TAB PO SCH ×3 (05:57→21:22)
[2017-11-26] MEDS: METRONIDAZOLE 500MG/NS 100ML 100 ML IV SCH ×3 (06:27→21:22)
--- NOTE | 2017-11-26 06:55 | Diagnostic Imaging Report ---
EXAMINATION: CHEST SINGLE (PORTABLE) INDICATION: Intubated COMPARISON: 11/25/2017 FINDINGS: TUBES and LINES: Endotracheal, NG tube and right IJ central line catheter are stable in good position. LUNGS: Lungs are not well inflated. There are bibasilar atelectasis. There is mild prominence of the central pulmonary vasculature, consistent with pulmonary venous congestion. Diffuse interlobular septi thickening compatible with edema. Confluent airspace opacity in the left lung base is improved PLEURA: Small bilateral pleural effusions HEART AND MEDIASTINUM: Cardiac size is moderately enlarged. There are atherosclerotic calcifications within the aorta. BONES AND SOFT TISSUES: No acute osseous lesion. Soft tissues are unremarkable. UPPER ABDOMEN: No free air under the diaphragm. IMPRESSION: 1. Stable findings, compatible with with pulmonary edema and central vascular congestion. 2. Confluent left lung base airspace disease has improved and compatible with aspiration Signed by: Dr. Abhishek Nix M.D. on 11/26/2017 6:52 AM
[2017-11-26] MEDS: MIDODRINE 2.5 MG TAB PO SCH ×3 (08:00→16:00)
[2017-11-26] MEDS: DOCUSATE SODIUM 100 MG CAP PO SCH ×2 (09:00→17:00)
[2017-11-26] MEDS: METOPROLOL TARTRATE 25 MG TAB PO SCH ×2 (09:00→20:06)
[2017-11-26] MEDS: HEPARIN SOD (PORCINE) 5,000 UNIT/ML VIAL SC SCH ×2 (09:00→20:07)
[2017-11-26] MEDS: ASPIRIN 81 MG CHEW TAB PO SCH (09:00)
[2017-11-26] MEDS: ATORVASTATIN 40 MG TAB NG SCH (09:00)
[2017-11-26] MEDS: PANTOPRAZOLE 40 MG 10ML VIAL IV SCH ×2 (09:00→20:06)
[2017-11-26] MEDS: BISACODYL 5 MG TAB EC PO SCH (09:00)
[2017-11-26] MEDS: FUROSEMIDE INJ 10 MG/ML 2 ML VIAL IV SCH (09:00)
[2017-11-26] MEDS ORDERED: POTASSIUM CHLORIDE 10MEQ/100ML 300 ML IV ONE (09:30)
--- NOTE | 2017-11-26 12:21 | Progress Note ---
DATE: November 26, 2017 TIME OF SERVICE: 10:50 a.m. OVERNIGHT: Remains intubated without acute events. REVIEW OF SYSTEMS: Unobtainable. Patient is sedated. PHYSICAL EXAMINATION: VITAL SIGNS: Temperature 99.5, pulse 84, respirations 24 to 26 on CPAP trial, BP 158/80, and SpO2 94%. GENERAL: This is very tired, ill-appearing elderly man, resting supine in bed. HEENT: Normocephalic without sinus tenderness. Oral mucosa is dry and intact with ET tube in place as well as gastric tube noted. NECK: Trachea is midline without JVD. CARDIOVASCULAR: S1 and S2 auscultated without extracardiac sounds appreciated. Telemetry reviewed. LUNGS: Bilateral breath sounds with coarseness. No wheezes or crackles appreciated. ABDOMEN: Soft, nondistended, and nontender. : Daniel in place with irrigation via normal saline gravity. EXTREMITIES: SCDs bilaterally. Does not follow commands. SKIN: Dry. PSYCHIATRIC: Flat affect. NEUROLOGIC: Not interactive at this time. Some response limited due to propofol drip. LABS: WBC this a.m. 6.1. H and H 8.5/26.8. Na 149, K 3.2, Cl 106, CO2 of 32, gap 14.2, BUN 24, CR 0.63, GFR greater than 60, and Ca 8.1 (these values are from the 15th). This morning's magnesium is 1.5. BNP 326. MEDICATIONS 1. Lasix 20 mg IV daily. 2. Metoprolol 12.5 mg p.o. q.12. 3. Subcu heparin 5000 units q.12. 4. Aspirin 81 mg p.o. daily. 5. Protonix 40 mg q.12 hours IV. 6. Lipitor 40 mg via NG daily. 7. Albuterol nebs q.6. 8. Flagyl IV q.8 hours. 9. Aztreonam IV q.8 hours. 10. Mestinon 60 mg p.o. q.8 hours. 11. Propofol drip. 12. Vancomycin 1.25 grams IV q.12. 13. Xalatan drops at bedtime. 14. P.r.n. Tylenol. 15. P.r.n. dopamine drip. 16. P.r.n. Dulcolax suppository. 17. P.r.n. p.o. Dulcolax. 18. Midodrine 7.5 t.i.d. and hold. 19. Colace 100 mg p.o. b.i.d. 20. P.r.n. Lacri-Lube. 21. P.r.n. epi drip. ASSESSMENT AND PLAN: This is a 77-year-old man with; 1. Acute hypoxic and hypercapnic respiratory failure. Continue with ventilatory weaning trials, on CPAP this day. Manage per pulmonology. 2. Cardiogenic shock with olq-TS-esnndqazk myocardial infarction. Continue medical management of the miz-OL-uvqllhkci myocardial infarction with cardiac recommendation of ischemic evaluation once recovered from this acute spell. Continue telemetry monitoring. 3. Sepsis. Continue IV antibiotics. 4. Urinary tract infection. Continue IV antibiotics per ID. 5. Carbon dioxide narcosis and retention. Continue weaning efforts. 6. Congestive heart failure. I and O negative 4100 mL in the last 24 hours. Continue with Lasix. 7. Myasthenia gravis. Continue pyridostigmine. 8. History of asbestosis. 9. Benign prostatic hypertrophy. 10. Overweight state. 11. Healthcare-associated pneumonia. IV antibiotics/ventilatory efforts. 12. Prophylaxis. SCDs and Protonix IV. 13. Disposition. Continue attempts to wean ventilatory support, urine irrigation per urology. Review of notes indicates discussion concerning possibility of LTAC has been discussed with family. Continue ventilator weaning. Dictated by: Doug Kerns NP Job#: [id number]
[2017-11-26] MEDS: VANCOMYCIN HCL 1.25 GM in SODIUM CHLORIDE 0.9% 250ML 300 ML IV SCH ×2 (12:30→23:45)
[2017-11-26] MEDS ORDERED: MAGNESIUM SULFATE 2GM/50ML 50 ML IV ONE ×2 (13:30→18:28)
--- NOTE | 2017-11-26 15:33 | Progress Note ---
DATE: November 26, 2017 CARDIOLOGY PROGRESS NOTE SUBJECTIVE: Patient is unable to report. He is sedated at this time. OBJECTIVE VITAL SIGNS: Temperature 98.9, pulse 69, respiratory rate 24, blood pressure 126/65, oxygen saturation 93% on mechanical ventilator. GENERAL: Appears to be resting comfortably. and brother at the bedside. Sedated. LUNGS: Diminished breath sounds anterior lower lobes. No crackles or rhonchi at this time. CARDIOVASCULAR: Irregular rate and rhythm. Distant heart sounds. ABDOMEN: Soft, nontender. EXTREMITIES: Lower extremities, 2+ pitting edema bilaterally. CARDIOVASCULAR MEDICATIONS 1. Furosemide 20 mg IV daily. 2. Metoprolol 12.5 mg p.o. q.12. 3. Aspirin 81 p.o. daily. 4. Atorvastatin 40 p.o. daily. LABS: No new labs today. Chest x-ray from today with unstable finding compatible with peripheral edema and central vascular congestion, confluent left lung base airspace disease has improved. TELEMETRY: Sinus rhythm with PVCs. IMPRESSION 1. Acute hypercapnic respiratory failure. 2. Non-ST elevation myocardial infarction. 3. Acute systolic heart failure with ejection fraction of 35-40%. 4. Pneumonia. 1. Anemia. 2. Benign prostatic hypertrophy, status post GreenLight photovaporization of the prostate. 3. Electrolyte derangement. RECOMMENDATIONS: Continue the above-listed cardiac medications. Continue to monitor patient very closely on telemetry. Nursing reports attempted weaning off vent yesterday, which was unsuccessful. Pulmonary managing care. Continue antibiotics per infectious disease. Patient will need ischemic evaluation once he is in a stable condition and has recovered from acute illness. Monitor closely. Dictated by: Karlene Gibson NP Job#: [id number] LPA
[2017-11-26] MEDS: LATANOPROST(OPTH) 2.5 ML BTL OP SCH (20:06)
--- NOTE | 2017-11-26 22:43 | Progress Note ---
DATE: November 24, 2017 TIME: 7 a.m. OVERNIGHT: No events. REVIEW OF SYSTEMS: Unobtainable. PHYSICAL EXAMINATION: VITAL SIGNS: Have been reviewed. GENERAL APPEARANCE: Tired-appearing man resting in bed. HEENT: ET tube in place. CARDIOVASCULAR: Normal S1 and S2. LUNGS: Reduced breath sounds, mildly coarse. ABDOMEN: Soft, nontender. EXTREMITIES: SCD bilaterally. : He has Daniel in place. SKIN: Dry. PSYCHIATRIC: Unable to assess. NEUROLOGICAL: Sedated. LABS: Reviewed. MEDICATIONS: Reviewed. ASSESSMENT: This is a 77-year-old man. 1. Acute hypoxic and hypercapnic respiratory failure. 2. Hypernatremia. 3. Cardiogenic shock and ube-SB-dxkyebngu myocardial infarction. 4. Sepsis. 5. Urinary tract infection. 6. Carbon dioxide narcosis and retention. 7. Congestive heart failure. 8. Myasthenia gravis. 9. History of asbestosis. 10. Benign prostatic hypertrophy. 11. Overweight state. 12. Healthcare-associated pneumonia. PLAN: 1. Continue vent support. 2. Give free water. 3. Vancomycin trough 14. 4. Increase free water to 100 mL every 4 hours. 5. Continue current care in the ICU. Job#: [id number]
--- NOTE | 2017-11-26 22:43 | Progress Note ---
DATE: November 25, 2017 TIME: 7:00 a.m. OVERNIGHT: No events. REVIEW OF SYSTEMS: Unobtainable. PHYSICAL EXAMINATION VITAL SIGNS: Reviewed. GENERAL: A tired-appearing man, resting in bed. HEENT: ET tube in place. CARDIOVASCULAR: Normal S1, S2. LUNGS: Moderate breath sounds. ABDOMEN: Soft, nontender. : Daniel in place. EXTREMITIES: SCDs bilaterally. SKIN: Dry. PSYCHIATRIC: Unable to assess. LABS: Reviewed. MEDICATIONS: Reviewed. ASSESSMENT: A 77-year-old man. 1. Acute hypoxic and hypercapnic respiratory failure. 2. Hypernatremia. 3. Cardiogenic shock and zbt-KL-quvbtglkk myocardial infarction. 4. Sepsis. 5. Carbon dioxide narcosis and retention. 6. Signs of congestive heart failure. 7. Myasthenia gravis. 8. History of asbestosis. 9. BPH. 10. Healthcare-associated pneumonia. PLAN 1. Continue vent support. 2. Sodium improving, down to 149 from 150. 3. Replace potassium. 4. Continue antibiotics. 5. Continue medical care. 6. Monitor closely in the ICU. Job#: [id number] CQ
[2017-11-27] VITALS (48 sets, daily range): BP systolic 88–173; BP diastolic 46–85
--- NOTE | 2017-11-27 00:04 | Progress Note ---
DATE: December 26, 2017 CRITICAL CARE PROGRESS NOTE Patient is a 77-year-old male, who was originally consulted due to acute hypoxemic/hypercapnic respiratory failure with pneumonia. He developed acute non-ST myocardial infarction with cardiogenic shock. He had acute systolic heart failure. Ejection fraction between 35%-40%, as well as sepsis. OBJECTIVE GENERAL: Currently, he is sedated. VITALS: Pulse 57, blood pressure 107/53, oxygen saturation 95. He is afebrile. In terms of the ventilation, he is on assist control of 15, FiO2 of 40, PEEP of 8, tidal volume 450. HEENT: Oral intubation, NG tube, and he is getting GI feeding. NECK: There is a central line in the right internal jugular. LUNGS: There is some rhonchi. HEART: No murmurs. ABDOMEN: Soft. No tenderness. EXTREMITIES: No pedal edema. IMPRESSIONS 1. Acute hypoxemic/hypercapnic respiratory failure. 2. He has recent acute non-ST myocardial infarction with cardiogenic shock, sepsis, acute systolic heart failure with ejection fraction 35%-40%, suspect this was most likely pneumonia. 3. He had also anemia. 4. He was having urinary tract infection. 5. He has a history of myasthenia gravis. 6. Benign prostatic hypertrophy. 7. History of asbestosis. 8. The impression is that he is still not weanable. RECOMMENDATION: To continue with the current ventilatory settings, the same medication that he is getting so far. For tomorrow, I would like to request ABGs, chest x-ray, chemistry, as well as CBC, and according to the condition, try to see if we can place her on CPAP and check the degree of tolerance for possible subsequent tentative for weaning. Job#: [id number]
[2017-11-27] MEDS: PROPOFOL IV EMULSION 10MG/ML 100 ML IV SCH ×2 (00:37→04:42)
[2017-11-27] MEDS: LEVALBUTEROL HCL SOLN NEBU 0.63 MG/3 ML NEB INH SCH ×4 (02:00→18:43)
[2017-11-27 04:45] LABS: BASOPHILS % 0.1 % (0.0-1.0); EOSINOPHILS # (AUTO) 0.2 (0.0-0.4); EOSINOPHILS % 2.1 % (0.0-6.0); HEMATOCRIT 28.2 % (38.2-49.6); HEMOGLOBIN 8.9 g/dL (14.0-18.0); LYMPHOCYTES # (AUTO) 1.3 (1.0-3.2); LYMPHOCYTES % 16.1 % (18.0-39.1); MEAN CORPUSCULAR HEMOGLOBIN 30.5 pg (28-32); MEAN CORPUSCULAR HGB CONC 31.6 g/dL (31-35); MEAN CORPUSCULAR VOLUME 96.6 fL (81-99); MONOCYTES # (AUTO) 0.7 (0.2-0.8); MONOCYTES % 8.1 % (4.4-11.3); NEUTROPHILS # (AUTO) 5.9 (2.1-6.9); NEUTROPHILS % 72.6 % (38.7-80.0); PLATELET COUNT 337 x10e3/uL (140-360); RED BLOOD COUNT 2.92 x10e6/uL (4.3-5.7); RED CELL DISTRIBUTION WIDTH 12.6 % (11.7-14.4)
[2017-11-27 05:11] LABS: ALANINE AMINOTRANSFERASE 56 IU/L (0-55); ALBUMIN/GLOBULIN RATIO 0.6 (0.8-2.0); ALKALINE PHOSPHATASE 49 IU/L (40-150); ANION GAP 10.1 mmol/L (8-16); BLOOD UREA NITROGEN 23 mg/dL (7-26); BUN/CREATININE RATIO 37 (6-25); CARBON DIOXIDE 36 mmol/L (22-29); CHLORIDE 101 mmol/L (98-107); CREATININE, SERUM 0.63 mg/dL (0.72-1.25); EST GLOMERULAR FILTRATION RATE > 60 ML/MIN (60-); GLUCOSE 133 mg/dL (74-118); POTASSIUM 3.1 mmol/L (3.5-5.1); SODIUM 144 mmol/L (136-145)
[2017-11-27 05:16] LABS: BILIRUBIN,DIRECT 0.2 mg/dL (0.0-0.5); MAGNESIUM 1.6 MG/DL (1.3-2.1)
[2017-11-27] MEDS: METRONIDAZOLE 500MG/NS 100ML 100 ML IV SCH ×3 (06:23→21:43)
[2017-11-27] MEDS: AZTREONAM 1 GM/NS 50 ML 50 ML IV SCH ×3 (06:23→21:43)
[2017-11-27] MEDS: PYRIDOSTIGMINE BROMIDE 60 MG TAB PO SCH ×3 (06:24→21:43)
--- NOTE | 2017-11-27 07:01 | Diagnostic Imaging Report ---
EXAMINATION: CHEST SINGLE (PORTABLE) INDICATION: Intubation COMPARISON: 11/26/2017 FINDINGS: TUBES and LINES: Endotracheal, NG tube and right IJ central line catheter are stable in good position. LUNGS: Lungs are not well inflated. There are bibasilar atelectasis. There is mild prominence of the central pulmonary vasculature, consistent with pulmonary venous congestion. Diffuse interlobular septi thickening compatible with edema. Confluent airspace opacity in the left lung base is stable PLEURA: Small bilateral pleural effusions HEART AND MEDIASTINUM: Cardiac size is moderately enlarged. There are atherosclerotic calcifications within the aorta. BONES AND SOFT TISSUES: No acute osseous lesion. Soft tissues are unremarkable. UPPER ABDOMEN: No free air under the diaphragm. IMPRESSION: 1. Stable findings, compatible with with pulmonary edema and central vascular congestion. 2. Confluent left lung base airspace disease is also stable and compatible with aspiration Signed by: Dr. Abhishek Nix M.D. on 11/27/2017 6:57 AM
[2017-11-27] MEDS: MIDODRINE 2.5 MG TAB PO SCH ×3 (08:00→16:16)
[2017-11-27] MEDS ORDERED: POTASSIUM CHLORIDE 20MEQ/15ML UDC NG STA (08:07)
[2017-11-27] MEDS: BISACODYL 5 MG TAB EC PO SCH (09:00)
[2017-11-27] MEDS: ASPIRIN 81 MG CHEW TAB PO SCH (09:00)
[2017-11-27] MEDS: DOCUSATE SODIUM 100 MG CAP PO SCH ×2 (09:00→16:16)
[2017-11-27] MEDS: PANTOPRAZOLE 40 MG 10ML VIAL IV SCH ×2 (09:00→20:21)
[2017-11-27] MEDS: FUROSEMIDE INJ 10 MG/ML 2 ML VIAL IV SCH ×2 (09:00→16:16)
[2017-11-27] MEDS: ATORVASTATIN 40 MG TAB NG SCH (09:00)
[2017-11-27] MEDS: METOPROLOL TARTRATE 25 MG TAB PO SCH ×3 (09:01→21:43)
[2017-11-27] MEDS: HEPARIN SOD (PORCINE) 5,000 UNIT/ML VIAL SC SCH ×2 (09:01→20:31)
--- NOTE | 2017-11-27 11:14 | Progress Note ---
DATE: November 27, 2017 CARDIOLOGY PROGRESS NOTE SUBJECTIVE: The patient remains intubated but awake. He denies chest pain or shortness of breath. OBJECTIVE VITALS: Temperature 98.4 degrees, pulse 85, respiratory rate 18, blood pressure 173/85, oxygen saturation 95% on mechanical ventilation. GENERAL: Intubated but awake. Responding appropriately to questions. In no acute distress. LUNGS: Coarse breath sounds bilaterally. No wheezes or crackles. CARDIOVASCULAR: Normal rate. Regular rhythm. No murmur. Normal S1 and S2. ABDOMEN: Soft and nontender. EXTREMITIES: No edema. CARDIAC MEDICATIONS 1. Metoprolol tartrate 12.5 mg p.o. q.12 h. 2. Furosemide 20 mg IV daily. 3. Aspirin 81 mg p.o. daily. 4. Atorvastatin 40 mg p.o. daily. 5. Midodrine 7.5 mg p.o. t.i.d. LABS: WBC 8.13, hemoglobin 8.9, hematocrit 28.2, and platelets 337,000. Sodium 144, potassium 3.1, chloride 101, CO2 36, BUN 23, creatinine 0.63. CHEST X-RAY: Stable findings compatible with pulmonary edema and central vascular congestion. Confluent left lung base airspace disease also stable and compatible with aspiration. TELEMETRY: Normal sinus rhythm. IMPRESSION 1. Acute hypercarbic respiratory failure. 2. Sbj-KK-bgnlhpwnh myocardial infarction. 3. Acute systolic heart failure. Ejection fraction 35% to 40%. 4. Suspect aspiration pneumonia. 5. Anemia. 6. BPH: Status post GreenLight photovaporization of the prostate. RECOMMENDATIONS: Continue current cardiac medications. Continue diuretics. Patient would benefit from diuresis now that he is off pressors. Ventilator management per pulmonary. Antibiotics per infectious disease. The patient will need ischemic evaluation once he has recovered from his acute illness and is more stable from a respiratory status. Thank you for this consult. We will continue to follow. Job#: [id number]
[2017-11-27] MEDS: VANCOMYCIN HCL 1.25 GM in SODIUM CHLORIDE 0.9% 250ML 300 ML IV SCH ×2 (11:45→23:34)
[2017-11-27] MEDS ORDERED: SODIUM CHLORIDE 0.9% 250ML 250 ML ONE (15:42)
[2017-11-27] MEDS: LATANOPROST(OPTH) 2.5 ML BTL OP SCH (20:21)
--- NOTE | 2017-11-27 23:19 | Progress Note ---
DATE: November 27, 2017 TIME: 1:00 p.m. OVERNIGHT: No events. Patient remains intubated. REVIEW OF SYSTEMS: Unobtainable. PHYSICAL EXAMINATION VITAL SIGNS: Reviewed. GENERAL: A tired-appearing man, resting in bed. HEENT: Anicteric. ET tube in place. CARDIOVASCULAR: Normal S1, S2. Without murmurs. ABDOMEN: Soft, nontender. : Daniel in place. EXTREMITIES: SCDs bilaterally. SKIN: Dry. PSYCHIATRIC: Unable to assess. LABS: Reviewed. MEDICATIONS: Reviewed. ASSESSMENT: A 77-year-old man. 1. Acute hypoxic and hypercapnic respiratory failure. 2. Healthcare-associated pneumonia. 3. Cardiogenic shock and gss-CD-fpyyirvdh myocardial infarction. 4. Hypernatremia. 5. Sepsis. 6. Carbon dioxide narcosis. 7. Myasthenia gravis. 8. History of asbestosis. 9. BPH, status post ablation. PLAN 1. Continue vent support. 2. Failed weaning trial today. 3. Replace potassium. 4. Continue all medical treatment and monitor closely in the ICU. Job#: [id number] CQ
[2017-11-28] VITALS (49 sets, daily range): BP systolic 92–166; BP diastolic 47–82
[2017-11-28] MEDS: PROPOFOL IV EMULSION 10MG/ML 100 ML IV SCH ×3 (01:15→18:31)
[2017-11-28] MEDS: LEVALBUTEROL HCL SOLN NEBU 0.63 MG/3 ML NEB INH SCH ×4 (02:58→19:00)
[2017-11-28 05:05] LABS: ANION GAP 12.3 mmol/L (8-16); BLOOD UREA NITROGEN 22 mg/dL (7-26); BUN/CREATININE RATIO 34 (6-25); CALCIUM 7.9 mg/dL (8.4-10.2); CARBON DIOXIDE 36 mmol/L (22-29); CHLORIDE 102 mmol/L (98-107); CREATININE, SERUM 0.64 mg/dL (0.72-1.25); EST GLOMERULAR FILTRATION RATE > 60 ML/MIN (60-); GLUCOSE 125 mg/dL (74-118); POTASSIUM 3.3 mmol/L (3.5-5.1); SODIUM 147 mmol/L (136-145)
[2017-11-28] MEDS: AZTREONAM 1 GM/NS 50 ML 50 ML IV SCH ×3 (05:37→21:35)
[2017-11-28] MEDS: METOPROLOL TARTRATE 25 MG TAB PO SCH ×3 (05:37→21:36)
[2017-11-28] MEDS: METRONIDAZOLE 500MG/NS 100ML 100 ML IV SCH ×3 (05:41→21:35)
[2017-11-28] MEDS: PYRIDOSTIGMINE BROMIDE 60 MG TAB PO SCH ×3 (05:41→21:36)
[2017-11-28] MEDS ORDERED: POTASSIUM CHLORIDE 20MEQ/15ML UDC NG ONE (07:30)
[2017-11-28] MEDS: FUROSEMIDE INJ 10 MG/ML 2 ML VIAL IV SCH ×2 (07:58→17:05)
[2017-11-28] MEDS: ATORVASTATIN 40 MG TAB NG SCH (08:28)
[2017-11-28] MEDS: ASPIRIN 81 MG CHEW TAB PO SCH (08:28)
[2017-11-28] MEDS: MIDODRINE 2.5 MG TAB PO SCH ×3 (08:28→15:11)
[2017-11-28] MEDS: PANTOPRAZOLE 40 MG 10ML VIAL IV SCH ×2 (08:28→21:35)
[2017-11-28] MEDS: DOCUSATE SODIUM 100 MG CAP PO SCH ×2 (08:28→15:11)
[2017-11-28] MEDS: BISACODYL 5 MG TAB EC PO SCH (08:28)
[2017-11-28] MEDS: HEPARIN SOD (PORCINE) 5,000 UNIT/ML VIAL SC SCH ×2 (08:29→21:39)
--- NOTE | 2017-11-28 10:12 | Progress Note ---
DATE: November 28, 2017 CARDIOLOGY PROGRESS NOTE SUBJECTIVE: Patient denies chest pain. He is complaining of shortness of breath, currently intubated but not sedated, on a spontaneous breathing trial. OBJECTIVE: VITAL SIGNS: Temperature 98.9 degrees, pulse 67, respiratory rate 29, blood pressure 147/52, oxygen saturation 90% on mechanical ventilation. GENERAL: Intubated, but awake, responds appropriately to questions, no acute distress. LUNGS: Clear to auscultation bilaterally. No wheezes or crackles. CARDIOVASCULAR: Normal rate, regular rhythm. No murmur. Normal S1 and S2. ABDOMEN: Soft, nontender. EXTREMITIES: No edema. CARDIAC MEDICATIONS: Aspirin 81 mg p.o. daily, atorvastatin 40 mg daily, midodrine 7.5 mg p.o. t.i.d., furosemide 20 mg IV b.i.d, metoprolol tartrate 12.5 mg p.o. q.8h. LABS: Sodium 147, potassium 3.3, chloride 102, CO2 36, BUN 22, creatinine 0.64. BNP 182. TELEMETRY: Normal sinus rhythm with PACs. IMPRESSION: 1. Acute hypercarbic respiratory failure. 2. Fmq-NS-yvrgjmcil myocardial infarction. 3. Acute systolic heart failure with ejection fraction 35% to 40%. 4. Suspect aspiration pneumonia. 5. Anemia. 6. Benign prostatic hypertrophy, status post GreenLight photovaporization of the prostate. RECOMMENDATIONS: Continue current cardiac medications. Monitor renal function with on diuretics. BNP is improving. Ventilator management per pulmonary. Antibiotics per infectious disease. The patient will need ischemic evaluation once he has recovered from his acute illness and is more stable from a respiratory standpoint. Thank you for this consult. We will continue to follow. Job#: [id number] DR GOLDSTEIN
[2017-11-28 12:36] LABS: MAGNESIUM 1.6 MG/DL (1.3-2.1); PHOSPHORUS 2.8 MG/DL (2.3-4.7)
[2017-11-28] MEDS: VANCOMYCIN HCL 1.25 GM in SODIUM CHLORIDE 0.9% 250ML 300 ML IV SCH (12:45)
--- NOTE | 2017-11-28 13:49 | Diagnostic Imaging Report ---
A single frontal view of the chest. HISTORY: respiratory failure, dropped sats, intubated COMPARISON: Chest radiograph November 27, 2017 and November 26, 2017 DISCUSSION: Portable technique, limits sensitivity of the exam. Soft tissue attenuation partially limits sensitivity of the exam. Numerous overlying leads. Tubes/Lines: Unchanged appearance of the following - Endotracheal, NG/OG tube and right IJ central line catheter Lungs and pleura: Low lung volumes result in bibasilar vascular crowding, accentuation of the pulmonary interstitial markings, central pulmonary vasculature, and the cardiac silhouette. Allowing for these limitations, the findings are as follows: Diffusely increased interstitial and airspace opacities, predominantly in a central distribution. Slightly increased aeration of the left lung base. Probable small bilateral pleural effusions. Heart and mediastinum: The cardiac silhouette and central pulmonary vasculature appears prominent. Bones: Unchanged. IMPRESSION: 1. Mild interval increase in the diffuse pulmonary edema. 2. Bibasilar atelectasis. 3. Small lateral pleural effusions. Signed by: Dr. Gorge Garcia D.O., M.M.M. on 11/28/2017 1:45 PM
--- NOTE | 2017-11-28 17:18 | Progress Note ---
DATE: November 28, 2017 TIME: 7 a.m. OVERNIGHT: Remains intubated. REVIEW OF SYSTEMS: Unobtainable. PHYSICAL EXAMINATION VITAL SIGNS: Reviewed. GENERAL: A tired-appearing man, resting in bed. HEENT: Anicteric. ET tube in place. CARDIOVASCULAR: Normal S1, S2. LUNGS: Moderate breath sounds. ABDOMEN: Soft, nontender. : He has Daniel in place. EXTREMITIES: No edema. SCDs. SKIN: Dry. PSYCHIATRIC: Unable to assess. NEUROLOGIC: Awake. LABS: Reviewed. MEDICATIONS: Reviewed. ASSESSMENT: A 77-year-old man. 1. Acute hypoxic and hypercapnic respiratory failure. 2. Healthcare-associated pneumonia. 3. Cardiogenic shock and cjs-RP-aiumepzls myocardial infarction. 4. Hypernatremia. 5. Sepsis. 6. Carbon dioxide narcosis. 7. Myasthenia gravis. 8. History of asbestosis. 9. BPH, status post ablation. PLAN 1. Continue spontaneous breathing trial. 2. Continue supportive care. 3. Continue Daniel. 4. Replace potassium. Job#: [id number]
[2017-11-28] MEDS: LATANOPROST(OPTH) 2.5 ML BTL OP SCH (21:35)
[2017-11-29] VITALS (46 sets, daily range): BP systolic 94–176; BP diastolic 47–94
[2017-11-29] MEDS: VANCOMYCIN HCL 1.25 GM in SODIUM CHLORIDE 0.9% 250ML 300 ML IV SCH (00:08)
[2017-11-29] MEDS: LEVALBUTEROL HCL SOLN NEBU 0.63 MG/3 ML NEB INH SCH ×4 (01:45→18:46)
[2017-11-29] MEDS: PROPOFOL IV EMULSION 10MG/ML 100 ML IV SCH (02:45)
[2017-11-29 04:48] LABS: HEMATOCRIT 28.6 % (38.2-49.6); MEAN CORPUSCULAR HEMOGLOBIN 30.7 pg (28-32); MEAN CORPUSCULAR HGB CONC 31.5 g/dL (31-35); MEAN CORPUSCULAR VOLUME 97.6 fL (81-99); PLATELET COUNT 313 x10e3/uL (140-360); RED BLOOD COUNT 2.93 x10e6/uL (4.3-5.7); RED CELL DISTRIBUTION WIDTH 12.9 % (11.7-14.4)
[2017-11-29 05:10] LABS: ANION GAP 14.6 mmol/L (8-16); BLOOD UREA NITROGEN 22 mg/dL (7-26); BUN/CREATININE RATIO 32 (6-25); CALCIUM 8.1 mg/dL (8.4-10.2); CARBON DIOXIDE 34 mmol/L (22-29); CHLORIDE 101 mmol/L (98-107); CREATININE, SERUM 0.68 mg/dL (0.72-1.25); EST GLOMERULAR FILTRATION RATE > 60 ML/MIN (60-); GLUCOSE 116 mg/dL (74-118); POTASSIUM 3.6 mmol/L (3.5-5.1); SODIUM 146 mmol/L (136-145)
[2017-11-29] MEDS: METRONIDAZOLE 500MG/NS 100ML 100 ML IV SCH (05:46)
[2017-11-29] MEDS: AZTREONAM 1 GM/NS 50 ML 50 ML IV SCH ×3 (05:46→21:57)
[2017-11-29] MEDS: METOPROLOL TARTRATE 25 MG TAB PO SCH ×3 (05:46→21:57)
[2017-11-29] MEDS: PYRIDOSTIGMINE BROMIDE 60 MG TAB PO SCH ×3 (05:47→21:57)
[2017-11-29 07:04] LABS: ANISOCYTOSIS SLIGHT; HYPOCHROMASIA SLIGHT; LYMPHOCYTES % (MANUAL) 17 % (19-48); MONOCYTES % (MANUAL) 2 % (3.4-9.0); NEUTROPHILS % (MANUAL) 81 % (40-74); PLATELET ESTIMATE ADEQUATE; PLATELET MORPHOLOGY COMMENT NORMAL; RBC MORPHOLOGY COMMENT NORMAL
--- NOTE | 2017-11-29 07:27 | Diagnostic Imaging Report ---
Examination: Single AP view of the chest. COMPARISON: 11/28/2017 INDICATION: Ventilator DISCUSSION: See impression IMPRESSION: 1. Endotracheal tube, enteric tube, and right internal jugular central venous catheter are unchanged in position. 2. Mild interval improvement in pulmonary edema relative to 11/28/2017. Persistent small bilateral pleural effusions and bibasilar atelectasis. No new consolidations. Signed by: Dr. Roman Galaviz M.D. on 11/29/2017 7:23 AM
[2017-11-29] MEDS: DOCUSATE SODIUM 100 MG CAP PO SCH ×2 (08:28→17:00)
[2017-11-29] MEDS: BISACODYL 5 MG TAB EC PO SCH (08:29)
[2017-11-29] MEDS: MIDODRINE 2.5 MG TAB PO SCH ×2 (08:53→12:00)
[2017-11-29] MEDS: PANTOPRAZOLE 40 MG 10ML VIAL IV SCH ×2 (08:54→21:56)
[2017-11-29] MEDS: FUROSEMIDE INJ 10 MG/ML 2 ML VIAL IV SCH ×2 (08:54→18:37)
[2017-11-29] MEDS: HEPARIN SOD (PORCINE) 5,000 UNIT/ML VIAL SC SCH (08:54)
[2017-11-29] MEDS: ATORVASTATIN 40 MG TAB NG SCH (08:54)
[2017-11-29] MEDS: ASPIRIN 81 MG CHEW TAB PO SCH (08:54)
--- NOTE | 2017-11-29 10:17 | Progress Note ---
DATE: November 29, 2017 CARDIOLOGY CONSULTATION SUBJECTIVE: No major events overnight. Remains intubated and sedated. REVIEW OF SYSTEMS: Unable to perform as the patient is still intubated and sedated. OBJECTIVE VITAL SIGNS: Temperature 99.8, pulse 64, respiratory rate 18, blood pressure 114/63, satting 97% on mechanical ventilation. GENERAL: Intubated, sedated elderly white man in no acute distress. CARDIOVASCULAR: Regular rate and rhythm. No murmurs, rubs or gallops. Palpable carotid pulses. Palpable radial pulses. ABDOMEN: Soft and nondistended. No masses. NEURO/PSYCH: The patient is intubated and sedated. However, responds to verbal stimuli. CARDIAC MEDICATIONS: Reviewed. LABORATORY DATA: Reviewed. Telemetry data reviewed. Shows normal sinus rhythm with PACs. ASSESSMENT AND PLAN 1. Acute hypercarbic respiratory failure. 2. Whn-IW-rcloqbfpk myocardial infarction. 3. Acute systolic heart failure: Ejection fraction of 35% to 40%. 4. Suspected aspiration pneumonia. 5. Anemia. 6. BPH: Status post laser photo pulverization of prostate. RECOMMENDATIONS: Continue current cardiac medications. Ventilator management per pulmonary. Antibiotics per infectious disease. The patient will need ischemic workup when he recovers from his acute illness. Will discuss with the patient whether he prefers the stress test or cardiac catheterization depending on his recovery of his renal function. Thank you for this consult. Will continue to follow. Job#: [id number] MAURICIO
[2017-11-29 12:25] LABS: ABG PCO2 54 mmHg (41-51); ABG PH 7.49 (7.31-7.41); ABG PO2 53 mmHg (80-105)
[2017-11-29 12:26] LABS: ABG HCO3 41 mmol/L (23-28)
[2017-11-29] MEDS ORDERED: POTASSIUM CHLORIDE 20MEQ/15ML UDC NG ONE (13:30)
--- NOTE | 2017-11-29 13:39 | Progress Note ---
DATE: November 29, 2017 TIME: 7 a.m. OVERNIGHT: The patient remains intubated. REVIEW OF SYSTEMS: Unobtainable. PHYSICAL EXAMINATION VITAL SIGNS: Reviewed. GENERAL: A tired-appearing man, resting in bed. HEENT: ET tube in place. CARDIOVASCULAR: Normal S1, S2. LUNGS: Moderate breath sounds. ABDOMEN: Soft, nontender. : Daniel in place. EXTREMITIES: No edema. SCDs. SKIN: Dry. PSYCHIATRIC: Unable to assess. NEUROLOGIC: Awake. LABS: Reviewed. MEDICATIONS: Reviewed. ASSESSMENT: A 77-year-old man. 1. Acute hypoxic and hypercapnic respiratory failure. 2. Healthcare-associated pneumonia. 3. Cardiogenic shock and jms-XT-mayqjyrrw myocardial infarction. 4. Hypernatremia. 5. Sepsis. 6. Carbon dioxide narcosis. 7. Myasthenia gravis. 8. History of asbestosis. 9. BPH, status post ablation. 10. Clostridium difficile negative diarrhea. PLAN 1. Continue spontaneous breathing trial. 2. Continue supportive care. 3. Continue Daniel. 4. Labs have been reviewed. ABG has been reviewed. The patient is hypoxemic with pO2 of 53. He is also hypercapnic with pCO2 of 54. 5. Continue current care in the ICU. 6. C. difficile testing is negative. Job#: [id number]
[2017-11-29] MEDS: ACETAZOLAMIDE SODIUM 500 MG/VIAL IV SCH (18:37)
[2017-11-29] MEDS: LATANOPROST(OPTH) 2.5 ML BTL OP SCH (21:56)
[2017-11-30] VITALS (46 sets, daily range): BP systolic 108–164; BP diastolic 57–108
[2017-11-30] MEDS: PROPOFOL IV EMULSION 10MG/ML 100 ML IV SCH ×2 (00:13→07:00)
[2017-11-30] MEDS: ACETAZOLAMIDE SODIUM 500 MG/VIAL IV SCH (00:36)
[2017-11-30] MEDS: LEVALBUTEROL HCL SOLN NEBU 0.63 MG/3 ML NEB INH SCH ×4 (02:08→18:30)
[2017-11-30 05:15] LABS: ANION GAP 14.5 mmol/L (8-16); BLOOD UREA NITROGEN 21 mg/dL (7-26); BUN/CREATININE RATIO 30 (6-25); CALCIUM 8.4 mg/dL (8.4-10.2); CARBON DIOXIDE 28 mmol/L (22-29); CHLORIDE 105 mmol/L (98-107); CREATININE, SERUM 0.69 mg/dL (0.72-1.25); EST GLOMERULAR FILTRATION RATE > 60 ML/MIN (60-); GLUCOSE 103 mg/dL (74-118); POTASSIUM 3.5 mmol/L (3.5-5.1); SODIUM 144 mmol/L (136-145)
[2017-11-30] MEDS: AZTREONAM 1 GM/NS 50 ML 50 ML IV SCH (05:54)
[2017-11-30] MEDS: PYRIDOSTIGMINE BROMIDE 60 MG TAB PO SCH ×3 (05:54→21:48)
[2017-11-30] MEDS: METOPROLOL TARTRATE 25 MG TAB PO SCH ×3 (05:54→21:48)
--- NOTE | 2017-11-30 06:07 | Diagnostic Imaging Report ---
CHEST SINGLE (PORTABLE), 11/30/2017 6:00 AM Technique: CHEST SINGLE (PORTABLE) Comparison: Previous day Clinical history: Respiratory failure follow-up Findings: See Impression Impression: 1. Lines/Tubes: Stable ET tube 2.8 cm above the gilbert, right IJ central venous catheter near the cavoatrial junction and subdiaphragmatic NG tube. 2. Stable cardiomediastinal silhouette. 3. No significant change in bibasilar opacities, possibly a component of underlying edema and atelectasis, and layering effusions. Signed by: Dr Kriss Millan MD on 11/30/2017 6:03 AM
[2017-11-30] MEDS: FUROSEMIDE INJ 10 MG/ML 2 ML VIAL IV SCH (07:39)
[2017-11-30] MEDS: POTASSIUM CHLORIDE 20MEQ/15ML UDC NG PRN (07:39)
[2017-11-30] MEDS: DOCUSATE SODIUM 100 MG CAP PO SCH ×2 (09:00→15:17)
[2017-11-30] MEDS: BISACODYL 5 MG TAB EC PO SCH (09:00)
[2017-11-30] MEDS: ATORVASTATIN 40 MG TAB NG SCH (09:08)
[2017-11-30] MEDS: PANTOPRAZOLE 40 MG 10ML VIAL IV SCH ×2 (09:08→21:48)
[2017-11-30] MEDS: ASPIRIN 81 MG CHEW TAB PO SCH (09:08)
--- NOTE | 2017-11-30 09:17 | Progress Note ---
DATE: November 30, 2017 TIME: 8:51 a.m. OVERNIGHT: No events. Patient on currently. REVIEW OF SYSTEMS: Unobtainable. PHYSICAL EXAMINATION: VITAL SIGNS: Reviewed. GENERAL APPEARANCE: Tired-appearing man resting in bed. HEENT: Anicteric. He has had ET tube in place with . He has NG tube in place. CARDIOVASCULAR: Normal S1 and S2. LUNGS: Moderate breath sounds, mildly coarse. ABDOMEN: Soft, nontender. : He has Daniel. EXTREMITIES: SCDs. SKIN: Dry. PSYCHIATRIC: Flat affect. NEUROLOGICAL: Moving all extremities. LABS: Reviewed. MEDICATIONS: Reviewed. ASSESSMENT: A 77-year-old man. 1. Acute hypoxic and hypercapnic respiratory failure. 2. Healthcare-associated pneumonia. 3. Cardiogenic shock and uem-MI-mewtdlran myocardial infarction. 4. Hypernatremia. 5. Carbon dioxide narcosis. 6. Sepsis. 7. Myasthenia gravis. 8. History of asbestosis. 9. Benign prostatic hypertrophy, status post ablation. 10. Clostridium difficile negative diarrhea. PLAN: 1. Continue breathing trial and attempt to extubate. 2. Continue Daniel. 3. Continue supportive care. 4. Continue utilization of Lasix. Job#: [id number]
[2017-11-30 10:54] LABS: ABG HCO3 29 mmol/L (23-28); ABG PCO2 43 mmHg (41-51); ABG PH 7.43 (7.31-7.41); ABG PO2 67 mmHg (80-105)
--- NOTE | 2017-11-30 11:02 | Progress Note ---
DATE: November 30, 2017 CARDIOLOGY PROGRESS NOTE SUBJECTIVE: The patient is awake. He is currently on T-collar trial. Denies chest pain or shortness of breath. OBJECTIVE VITALS: Temperature 99.2 degrees, pulse 63, respiratory rate 20, blood pressure 153/76, oxygen saturation 98% on mechanical ventilation. GENERAL: Elderly man in no acute distress. Awake and responding appropriately to questions. Remains intubated. CARDIOVASCULAR: Normal rate. Regular rhythm. No murmur. Normal S1 and S2. LUNGS: Coarse breath sounds bilaterally. No wheezes or crackles. ABDOMEN: Soft and nontender. EXTREMITIES: No edema. CARDIAC MEDICATIONS 1. Aspirin 81 mg p.o. daily. 2. Atorvastatin 40 mg p.o. daily. 3. Furosemide 20 mg IV b.i.d. 4. Metoprolol tartrate 12.5 mg p.o. q.8 h. LABS: Sodium 144, potassium 3.5, chloride 105, CO2 28, BUN 21, creatinine 0.69. BNP 220. Chest x-ray stable ET tube 2.8 cm above the gilbert. Right IJ central venous catheter near the cavoatrial junction and subdiaphragmatic NG tube. Stable cardiomediastinal silhouette. No significant change in bibasilar opacities, possibly a component of underlying edema and atelectasis, and layering effusions. Telemetry is normal sinus rhythm with PACs. IMPRESSION 1. Acute hypercarbic respiratory failure. 2. Sho-ZP-qlzdusrdd myocardial infarction. 3. Acute systolic heart failure with ejection fraction of 35% to 40%. 4. Suspect aspiration pneumonia. 5. Anemia. 6. Benign prostatic hypertrophy: Status post green light photovaporization of the prostate. RECOMMENDATIONS: Continue current cardiac medications. Ventilator management per pulmonary. Antibiotics per infectious disease. The patient will need ischemic evaluation once he recovers from his acute illness and is extubated. We will discuss with the patient stress test versus cardiac catheterization at that time. Increase diuretics. Thank you for the consult. We will continue to follow. Job#: [id number] MAURICIO
[2017-11-30 15:05] LABS: ALANINE AMINOTRANSFERASE 123 IU/L (0-55); ALBUMIN 2.5 g/dL (3.5-5.0); ALBUMIN/GLOBULIN RATIO 0.6 (0.8-2.0); ALKALINE PHOSPHATASE 64 IU/L (40-150); BLOOD UREA NITROGEN 19 mg/dL (7-26); BUN/CREATININE RATIO 28 (6-25); CARBON DIOXIDE 27 mmol/L (22-29); CHLORIDE 106 mmol/L (98-107); CREATININE, SERUM 0.68 mg/dL (0.72-1.25); EST GLOMERULAR FILTRATION RATE > 60 ML/MIN (60-); GLUCOSE 110 mg/dL (74-118); SODIUM 142 mmol/L (136-145)
[2017-11-30] MEDS ORDERED: FUROSEMIDE INJ 10 MG/ML 2 ML VIAL IV SCH (17:00)
[2017-11-30] MEDS: FUROSEMIDE INJ 10 MG/ML 4 ML VIAL IV SCH (17:50)
[2017-11-30] MEDS: LATANOPROST(OPTH) 2.5 ML BTL OP SCH (21:35)
[2017-12-01] VITALS (41 sets, daily range): BP systolic 92–168; BP diastolic 57–86
[2017-12-01] MEDS: LEVALBUTEROL HCL SOLN NEBU 0.63 MG/3 ML NEB INH SCH ×4 (01:00→18:40)
[2017-12-01 04:45] LABS: HEMATOCRIT 31.7 % (38.2-49.6); HEMOGLOBIN 10.2 g/dL (14.0-18.0); MEAN CORPUSCULAR HEMOGLOBIN 30.7 pg (28-32); MEAN CORPUSCULAR HGB CONC 32.2 g/dL (31-35); MEAN CORPUSCULAR VOLUME 95.5 fL (81-99); PLATELET COUNT 411 x10e3/uL (140-360); RED BLOOD COUNT 3.32 x10e6/uL (4.3-5.7); RED CELL DISTRIBUTION WIDTH 12.3 % (11.7-14.4)
[2017-12-01 05:04] LABS: ANION GAP 14.9 mmol/L (8-16); BLOOD UREA NITROGEN 23 mg/dL (7-26); BUN/CREATININE RATIO 35 (6-25); CALCIUM 8.8 mg/dL (8.4-10.2); CARBON DIOXIDE 27 mmol/L (22-29); CHLORIDE 104 mmol/L (98-107); CREATININE, SERUM 0.66 mg/dL (0.72-1.25); EST GLOMERULAR FILTRATION RATE > 60 ML/MIN (60-); GLUCOSE 97 mg/dL (74-118); POTASSIUM 3.9 mmol/L (3.5-5.1); SODIUM 142 mmol/L (136-145)
[2017-12-01] MEDS: METOPROLOL TARTRATE 25 MG TAB PO SCH ×3 (05:30→20:38)
[2017-12-01] MEDS: PYRIDOSTIGMINE BROMIDE 60 MG TAB PO SCH ×3 (05:31→20:38)
--- NOTE | 2017-12-01 06:16 | Progress Note ---
DATE: December 01, 2017 TIME: 5:50 a.m. OVERNIGHT: The patient was extubated. REVIEW OF SYSTEMS: Denies any symptoms, but limited review of systems. PHYSICAL EXAMINATION GENERAL: A tired-appearing man resting in bed. HEENT: ET tube is out. CARDIOVASCULAR: Normal S1 and S2. LUNGS: Moderate breath sounds. Good air movement. ABDOMEN: Soft, nontender and nondistended. : Daniel. EXTREMITIES: No edema. SKIN: Dry. PSYCHIATRIC: Flat affect. NEUROLOGIC: Awake, alert and appropriate. LABS: Reviewed. MEDICATIONS: Reviewed. ASSESSMENT AND PLAN: A 77-year-old man with: 1. Acute hypoxic and hypercapnic respiratory failure. 2. Healthcare-associated pneumonia. 3. Cardiogenic shock. 4. Mez-XD-pbmatueuv myocardial infarction. 5. Hyponatremia. 6. Carbon dioxide narcosis. 7. Sepsis. 8. Myasthenia gravis. 9. History of asbestosis. 10. BPH with status post ablation. 11. Clostridium difficile negative diarrhea. PLAN 1. He is status post extubation. 2. Swallow eval now. 3. Physical therapy consultation. 4. Defer to Dr. Coello regarding Daniel. 5. Cardiac workup will be pending, possible catheterization. 6. Monitor closely. Monitor in ICU. Job#: [id number] MAURICIO
[2017-12-01 07:07] LABS: EOSINOPHILS % (MANUAL) 1 % (0-7); LYMPHOCYTES % (MANUAL) 7 % (19-48); MONOCYTES % (MANUAL) 6 % (3.4-9.0); NEUTROPHILS % (MANUAL) 81 % (40-74); NUCLEATED RED BLOOD CELLS 1
[2017-12-01 07:08] LABS: PLATELET ESTIMATE ADEQUATE; PLATELET MORPHOLOGY COMMENT NORMAL; RBC MORPHOLOGY COMMENT NORMAL; TOXIC GRANULATION SLIGHT
[2017-12-01 07:09] LABS: ANISOCYTOSIS SLIGHT; HYPOCHROMASIA SLIGHT
[2017-12-01] MEDS: DOCUSATE SODIUM 100 MG CAP PO SCH ×2 (09:00→20:25)
[2017-12-01] MEDS: BISACODYL 5 MG TAB EC PO SCH ×2 (09:00→10:02)
[2017-12-01] MEDS: FUROSEMIDE INJ 10 MG/ML 4 ML VIAL IV SCH ×2 (10:02→17:10)
[2017-12-01] MEDS: ASPIRIN 81 MG CHEW TAB PO SCH ×2 (10:02→14:50)
[2017-12-01] MEDS: PANTOPRAZOLE 40 MG 10ML VIAL IV SCH ×2 (10:02→15:41)
[2017-12-01] MEDS: ATORVASTATIN 40 MG TAB NG SCH ×2 (10:02→14:50)
[2017-12-01] MEDS ORDERED: DOCUSATE SODIUM LIQD 100 MG/10 ML UDC ONE (10:02)
--- NOTE | 2017-12-01 11:01 | Progress Note ---
DATE: December 01, 2017 CARDIOLOGY PROGRESS NOTE SUBJECTIVE: Patient denies chest pain or shortness of breath. He was extubated yesterday. OBJECTIVE: VITAL SIGNS: Temperature 98.5 degrees, pulse 69, respiratory rate 20, blood pressure 148/70. Oxygen saturation 98% on 3 L nasal cannula. GENERAL: Elderly man. No acute distress. Awake and alert. LUNGS: Clear to auscultation bilaterally. No wheezes or crackles. CARDIOVASCULAR: Normal rate, regular rhythm. No murmur. Normal S1, S2. ABDOMEN: Soft, nontender. EXTREMITIES: No edema. CARDIAC MEDICATIONS: 1. Furosemide 40 mg IV b.i.d. 2. Aspirin 81 mg p.o. daily. 3. Atorvastatin 40 mg p.o. each bedtime. 4. Metoprolol tartrate 12.5 mg p.o. q.8 h. LABORATORIES: WBC 12.8, hemoglobin 10.2, hematocrit 31.7, platelets 411. Sodium 4.2, potassium 3.9, chloride 104, CO2 27, BUN 23, creatinine 0.66. BNP 347. Telemetry: Normal sinus rhythm. IMPRESSION: 1. Acute hypercarbic respiratory failure. 2. Zdw-EV-fncrawqqk myocardial infarction. 3. Acute systolic heart failure with ejection fraction of 35% to 40%. 4. Suspect aspiration pneumonia. 5. Anemia. 6. Benign prostatic hypertrophy, status post GreenLight photovaporization of the prostate. RECOMMENDATIONS: Will increase metoprolol. Continue current cardiac medications otherwise. Given patient's dwy-WH-fkcqgscef myocardial infarction, discussed ischemic evaluation, which patient refused. Risks of declining ischemic evaluation were discussed with the patient, including risk of heart attack, heart failure, and . Patient expressed understanding but adamantly refused any further cardiac evaluation. Antibiotics per infectious disease. Monitor volume status closely. Keep patient on telemetry. Thank you for this consult. We will continue to follow. Job#: [id number] [place]
--- NOTE | 2017-12-01 14:34 | Progress Note ---
DATE: December 01, 2017 UROLOGY PROGRESS NOTE AGE: 77 SEX: Male. ATTENDING PHYSICIAN: Dr. Lenard Shrestha CONSULTING PHYSICIAN: Dr. Oscar Coello The patient was extubated yesterday. He has the continuous bladder irrigation present but is running very, very slowly. They can clamp it off, and his urine will still remain pretty clear. Now that the patient has been extubated, he has had several combative episodes demanding that his drive a car through the window to get him out of here. The patient's hemoglobin was 10.2, hematocrit 31.7, BUN 23, creatinine 0.66. Physical examination reveals that the patient has a nasogastric tube in place, and there is no evidence of deep venous thrombophlebitis. There is no evidence of epididymitis. The catheter is not leaking at this time, and there is clear efflux. My recommendations at this time are to remove the catheter when the patient becomes ambulatory. He was able to sit up today, but he is still not swallowing well on his own. Further recommendations will be made once the dysphagia has resolved. Job#: [id number]
[2017-12-01] MEDS: ACETAMINOPHEN 325 MG TAB PO PRN (14:50)
--- NOTE | 2017-12-01 15:38 | Diagnostic Imaging Report ---
MODIFIED BARIUM SWALLOW Reason for examination: Dysphasia. Productive cough. Patient coded during hospitalization. Comparison: None DISCUSSION: This examination was conducted in conjunction with speech pathologist. Patient was given, by mouth, numerous consistencies of barium. Fluoro Time: 58 seconds DAP: 85.51 cGy*cm IMPRESSION: Please see speech pathology report for detailed description and recommendations. Episodes of aspiration. Signed by: Dr. Soy Marquez M.D. on 12/01/2017 3:34 PM
[2017-12-01] MEDS: PROPOFOL IV EMULSION 10MG/ML 100 ML IV SCH (15:45)
[2017-12-01] MEDS ORDERED: BISACODYL 5 MG TAB EC PO PRN (15:45)
[2017-12-01] MEDS ORDERED: DOCUSATE SODIUM LIQD 100 MG/10 ML UDC PO SCH (17:00)
[2017-12-01] MEDS ORDERED: DOCUSATE SODIUM LIQD 100 MG/10 ML UDC PO PRN (17:00)
[2017-12-01] MEDS: LATANOPROST(OPTH) 2.5 ML BTL OP SCH (20:38)
[2017-12-02] VITALS (12 sets, daily range): BP systolic 99–139; BP diastolic 52–68
[2017-12-02] MEDS: ACETAMINOPHEN 325 MG TAB PO PRN ×2 (01:00→23:51)
[2017-12-02] MEDS: QUETIAPINE FUMARATE 25 MG TAB PO PRN (01:00)
[2017-12-02] MEDS: LEVALBUTEROL HCL SOLN NEBU 0.63 MG/3 ML NEB INH SCH ×4 (01:30→19:55)
[2017-12-02 05:06] LABS: ANION GAP 12.5 mmol/L (8-16); BLOOD UREA NITROGEN 28 mg/dL (7-26); BUN/CREATININE RATIO 39 (6-25); CALCIUM 8.7 mg/dL (8.4-10.2); CARBON DIOXIDE 33 mmol/L (22-29); CHLORIDE 102 mmol/L (98-107); CREATININE, SERUM 0.72 mg/dL (0.72-1.25); EST GLOMERULAR FILTRATION RATE > 60 ML/MIN (60-); GLUCOSE 132 mg/dL (74-118); POTASSIUM 3.5 mmol/L (3.5-5.1); SODIUM 144 mmol/L (136-145)
[2017-12-02] MEDS: PYRIDOSTIGMINE BROMIDE 60 MG TAB PO SCH ×3 (05:19→21:22)
--- NOTE | 2017-12-02 06:41 | Progress Note ---
DATE: December 02, 2017 TIME: 5:40 a.m. OVERNIGHT: The patient failed follow eval, remains with NG tube. REVIEW OF SYSTEMS: Limited. OBJECTIVE VITAL SIGNS: Have been reviewed. GENERAL: A tired-appearing man resting in bed. HEENT: Anicteric, has NG tube in place. CARDIOVASCULAR: Normal S1 and S2. LUNGS: Moderate breath sounds. ABDOMEN: Soft, nontender, and nondistended. : Daniel in place. EXTREMITIES: No edema. SKIN: Dry. PSYCHIATRIC: Flat affect. LABS: Reviewed. MEDICATIONS: Reviewed. ASSESSMENT AND PLAN: A 77-year-old man with: 1. Acute hypoxic and hypercapnic respiratory failure. 2. Healthcare-associated pneumonia. 3. Cardiogenic shock. 4. Oropharyngeal dysphagia. 5. Carbon dioxide narcosis. 6. Hyponatremia. 7. Sepsis. 8. Myasthenia gravis. 9. History of asbestosis. 10. Benign prostatic hypertrophy, status post ablation. 11. Clostridium difficile-negative diarrhea. PLAN 1. Continue NG tube. 2. The patient can be transitioned to the floor with telemetry. 3. Further swallow evaluation on Monday. 4. Daniel will be removed once patient is ambulatory. 5. Continue physical therapy. Job#: [id number] GEORGETTE
[2017-12-02] MEDS: FUROSEMIDE INJ 10 MG/ML 4 ML VIAL IV SCH ×2 (09:21→17:20)
[2017-12-02] MEDS: ASPIRIN 81 MG CHEW TAB PO SCH (09:21)
[2017-12-02] MEDS: ATORVASTATIN 40 MG TAB NG SCH (09:21)
[2017-12-02] MEDS: METOPROLOL TARTRATE 25 MG TAB PO SCH ×2 (09:21→21:00)
[2017-12-02] MEDS: POTASSIUM CHLORIDE 20MEQ/15ML UDC NG PRN (11:43)
--- NOTE | 2017-12-02 12:46 | Progress Note ---
DATE: December 02, 2017 CARDIOLOGY PROGRESS NOTE SUBJECTIVE: No major events overnight. Denies chest pain or shortness of breath. Complaining about why he is not able to eat. OBJECTIVE VITAL SIGNS: Temperature 97.6, pulse 75, respiratory rate 19, blood pressure 138/59, satting 95% on 2 L nasal cannula. GENERAL: Elderly white man, no acute distress. CARDIOVASCULAR: Regular rate and rhythm. No murmurs, rubs or gallops. LUNGS: Coarse breath sounds bilaterally. No respiratory distress. ABDOMEN: Soft, nontender, nondistended. NEURO: Intact. Alert and oriented to person, place and time. Normal affect. IMAGING DATA: Reviewed. LABORATORY DATA: Reviewed. MEDICATIONS: Reviewed. ASSESSMENT AND PLAN 1. Acute hypercarbic respiratory failure. 2. Tfv-FV-wenvnnufo myocardial infarction. 3. Acute systolic heart failure with ejection fraction of 35% to 40%. 4. Suspected aspiration pneumonia. 5. Anemia. 6. BPH, status post GreenLight photopulverization of the prostate. PLAN: Continue current cardiac medications. The patient had a rcf-TA-doqlqfbif myocardial infarction. Given his risk factors, he likely has underlying CAD. Discussed extensively with the patient regarding risks of having untreated CAD and recent VA and resultant increased risk in cardiovascular events including large heart attack, heart failure and even . Patient understands these risks but is not interested in any further cardiac evaluation including noninvasive workup testing such as a stress test. Will continue to monitor the patient. Thank you for this consult. Job#: [id number]
--- NOTE | 2017-12-02 14:12 | Progress Note ---
DATE: December 02, 2017 UROLOGY PROGRESS NOTE CONSULTING PHYSICIAN: Dr. Oscar Coello The patient has been transferred out of the intensive care unit. He still has a nasogastric tube and nasogastric feeding through the NG tube. The patient is alert and oriented to person, place and time. I am able to communicate with him without difficulty. His abdomen is soft. The bladder irrigation fluid is basically turned off, and it is a clear efflux. Patient's abdomen is soft. There is no evidence of a new DVT. In talking to the patient, he states that he wants to go home now, and I told him he is in no shape to go home, and I also told him, depending upon how well he recovers, he might even have to go to a rehab unit or a [facility] facility before going home depending upon how well he recuperates. He stated that is not going to happen, but it may be required. It just depends upon how well he continues to recuperate. Meanwhile, when the patient becomes more ambulatory, I will then take out the Daniel catheter for a trial of voiding. Job#: [id number]
[2017-12-02] MEDS: PANTOPRAZOLE 40 MG 10ML VIAL IV SCH (16:59)
[2017-12-02] MEDS: LATANOPROST(OPTH) 2.5 ML BTL OP SCH (22:00)
[2017-12-03] VITALS (8 sets, daily range): BP systolic 114–178; BP diastolic 60–72
[2017-12-03] MEDS: QUETIAPINE FUMARATE 25 MG TAB PO PRN (00:17)
[2017-12-03] MEDS: LEVALBUTEROL HCL SOLN NEBU 0.63 MG/3 ML NEB INH SCH ×4 (00:40→19:30)
[2017-12-03] MEDS: PYRIDOSTIGMINE BROMIDE 60 MG TAB PO SCH ×3 (06:00→21:20)
[2017-12-03] MEDS: METOPROLOL TARTRATE 25 MG TAB PO SCH ×2 (09:00→21:10)
[2017-12-03] MEDS: ATORVASTATIN 40 MG TAB NG SCH (09:00)
[2017-12-03] MEDS: ASPIRIN 81 MG CHEW TAB PO SCH (09:00)
[2017-12-03] MEDS: FUROSEMIDE INJ 10 MG/ML 4 ML VIAL IV SCH ×2 (09:00→17:15)
[2017-12-03] MEDS: SODIUM CHLORIDE 0.9% 1000ML 1,000 ML IV SCH (16:29)
[2017-12-03] MEDS: PANTOPRAZOLE 40 MG 10ML VIAL IV SCH (16:29)
[2017-12-03] MEDS: LATANOPROST(OPTH) 2.5 ML BTL OP SCH (21:20)
--- NOTE | 2017-12-03 22:46 | Progress Note ---
DATE: December 03, 2017 INTERNAL MEDICINE PROGRESS NOTE TIME: 12:00 noon. OVERNIGHT: Patient self-discontinued NG tube and IV access. No other acute abnormalities. REVIEW OF SYSTEMS: The patient denies chest pain, shortness of breath. Denies nausea, vomiting, diarrhea, fever, chills, sweats, leg pain, dizziness, headache, or blurry vision. PHYSICAL EXAMINATION VITAL SIGNS: T 98.0, P 54, R 18, BP 136/63, SpO2 of 96% on 2 L nasal cannula. GENERAL APPEARANCE: This is a very tired-appearing man, resting supine in bed. HEENT: Normocephalic. Mucosa is pale, moist and intact. Nares are patent. NECK: Trachea is midline. No JVD present. CV: S1 and S2 auscultated without clicks, murmurs, or rubs. Heart sounds are distant. LUNGS: Bilateral breath sounds. CTA with moderate excursion. ABDOMEN: Soft, nontender, and nondistended. : Daniel to bedside drainage with clear oneil urine. EXTREMITIES: Without edema. SKIN: Dry. PSYCHIATRIC: Flat affect. Labile conversational arch. LABS: Reviewed. MEDICATIONS 1. NS 75 mL/hour. 2. Protonix 40 mg a.c. p.m. meal IV. 3. Mestinon 60 mg q.8 hours p.o. 4. Xopenex q.6 hours inhaleable. 5. Seroquel 12.5 mg p.o. q.12. 6. P.r.n. Tylenol. 7. Xalatan 1 drop at bedtime. 8. Potassium chloride 40 mEq as needed in the morning. 9. Lacri-Lube b.i.d. p.r.n. 10. P.r.n. Dulcolax. 11. Metoprolol 25 mg p.o. q.12 hours. 12. Lasix 40 mg b.i.d. IV. 13. Aspirin 81 mg p.o. daily. 14. Atorvastatin 40 mg NG daily. 15. Colace b.i.d. p.r.n. 16. Dulcolax p.r.n. daily. ASSESSMENT AND PLAN: This is a 77-year-old man with: 1. Acute hypoxic and hypercapnic respiratory failure. 2. Healthcare-associated pneumonia. 3. Cardiogenic shock. 4. Oropharyngeal dysphagia. Patient failed previous swallow study; nursing attempts bedside swallow this afternoon. 5. Carbon dioxide narcosis. 6. Hyponatremia, sodium now 144, resolved. We generally hydrate patient overnight due to elevation in BUN due to interruption and feeding and followup continuation of IV fluids with a.m. values. 7. Sepsis. 8. Myasthenia gravis per medications as above. 9. History of asbestosis, pulmonary following. 10. Benign prostatic hypertrophy, status post ablation. Urology following. Daniel in place. Discontinuation pending ambulation 11. Clostridium difficile negative diarrhea, improving. 12. Prophylaxis. Continue Protonix and aspirin. DISPOSITION: Patient is tolerating p.o. medications. Extensive discussion with patient, RN, and at bedside this day, leaving the facility to go home on this day. The patient informed that home milieus inappropriate for him considering this condition; patient is then willing to consider this matter. However, he is agreeable to continue to physical therapy on this day. continue attempt to replace NG and IV tubing. We will provide IV fluids as a replacement hydration as above. DICTATED BY: Doug Kerns NP. Job#: [id number] STEPHIE
[2017-12-04] VITALS: BP 110/54
[2017-12-04] MEDS: LEVALBUTEROL HCL SOLN NEBU 0.63 MG/3 ML NEB INH SCH ×4 (01:50→19:25)
[2017-12-04 04:00] VITALS: BP 125/60
[2017-12-04] MEDS: PYRIDOSTIGMINE BROMIDE 60 MG TAB PO SCH ×3 (05:27→21:30)
[2017-12-04] MEDS: SODIUM CHLORIDE 0.9% 1000ML 1,000 ML IV SCH (05:27)
[2017-12-04 05:49] LABS: HEMATOCRIT 32.7 % (38.2-49.6); HEMOGLOBIN 10.6 g/dL (14.0-18.0); MEAN CORPUSCULAR HEMOGLOBIN 31.2 pg (28-32); MEAN CORPUSCULAR HGB CONC 32.4 g/dL (31-35); MEAN CORPUSCULAR VOLUME 96.2 fL (81-99); PLATELET COUNT 410 x10e3/uL (140-360); RED CELL DISTRIBUTION WIDTH 12.6 % (11.7-14.4)
--- NOTE | 2017-12-04 06:46 | Diagnostic Imaging Report ---
EXAM: CHEST SINGLE (PORTABLE), AP 1 view INDICATION: Pneumonia left lower lobe COMPARISON: AP view of the chest November 30, 2017 FINDINGS: LINES/TUBES: Interval removal of endotracheal tube, right internal jugular vein central line and nasal/orogastric tube. LUNGS: Stable basilar congestion/edema and right basilar atelectasis. PLEURA: Indeterminate for trace layering pleural effusions. HEART AND MEDIASTINUM: Stable cardiac enlargement. BONES AND SOFT TISSUES: No acute findings. IMPRESSION: Interval removal of support lines and tubes, otherwise no significant interval change in appearance of heart and lungs. Signed by: Dr. Araceli Bledsoe M.D. on 12/04/2017 6:40 AM
[2017-12-04 07:43] VITALS: BP 111/55
[2017-12-04 08:22] LABS: ALANINE AMINOTRANSFERASE 55 IU/L (0-55); ALBUMIN 2.4 g/dL (3.5-5.0); ALBUMIN/GLOBULIN RATIO 0.6 (0.8-2.0); ALKALINE PHOSPHATASE 54 IU/L (40-150); ANION GAP 13.4 mmol/L (8-16); BLOOD UREA NITROGEN 28 mg/dL (7-26); BUN/CREATININE RATIO 39 (6-25); CALCIUM 8.6 mg/dL (8.4-10.2); CARBON DIOXIDE 38 mmol/L (22-29); CHLORIDE 100 mmol/L (98-107); CREATININE, SERUM 0.71 mg/dL (0.72-1.25); EST GLOMERULAR FILTRATION RATE > 60 ML/MIN (60-); GLUCOSE 143 mg/dL (74-118); POTASSIUM 3.4 mmol/L (3.5-5.1); SODIUM 148 mmol/L (136-145)
[2017-12-04] MEDS: FUROSEMIDE INJ 10 MG/ML 4 ML VIAL IV SCH ×2 (09:00→17:00)
[2017-12-04] MEDS: ASPIRIN 81 MG CHEW TAB PO SCH (09:30)
[2017-12-04] MEDS: METOPROLOL TARTRATE 25 MG TAB PO SCH ×2 (09:30→21:00)
[2017-12-04] MEDS: ATORVASTATIN 40 MG TAB NG SCH (09:30)
[2017-12-04 11:43] VITALS: BP 108/71
--- NOTE | 2017-12-04 12:04 | Progress Note ---
DATE: December 04, 2017 ADDENDUM Patient presented to the hospital for management of his enlarged prostate; however, he required admission due to acute respiratory failure. He was intubated, has since been extubated, doing better now. We will continue his admission status at this time for acute respiratory failure. Job#: [id number] TAMIKA
--- NOTE | 2017-12-04 12:12 | Progress Note ---
DATE: December 04, 2017 TIME: 10:57 a.m. OVERNIGHT: Wanting to be fed. REVIEW OF SYSTEMS: Denies any dizziness, chest pain, shortness of breath. Denies any fever, chills, sweats, nausea, vomiting, or diarrhea. PHYSICAL EXAMINATION VITAL SIGNS: Reviewed. GENERAL: A tired-appearing man, resting in bed. HEENT: Anicteric. CARDIOVASCULAR: Normal S1 and S2 without murmurs. ABDOMEN: Soft, nontender, nondistended. : Has Daniel in place. EXTREMITIES: No edema. SKIN: Dry. PSYCHIATRIC: Flat affect. NEUROLOGIC: Alert and appropriate. LABS: Reviewed. MEDICATIONS: Reviewed. ASSESSMENT AND PLAN: A 77-year-old man with; 1. Oropharyngeal dysphagia. 2. Acute hypoxic and hypercapnic respiratory failure. 3. Healthcare-associated pneumonia. 4. Cardiogenic shock. 5. Carbon dioxide narcosis. 6. Hypernatremia. 7. Sepsis. 8. Myasthenia gravis. 9. History of asbestosis. 10. Benign prostatic hypertrophy, status post ablation. 11. Clostridium difficile negative diarrhea. PLAN 1. Start diet and observe for any signs of aspiration. 2. Physical therapy. 3. Daniel per urology. 4. Chest x-ray today shows no interval changes. 5. He did have Staph aureus in his sputum, which is methicillin-sensitive Staph aureus. 6. All antibiotics have been discontinued. Patient does not have any leukocytosis at this time. Leukocytosis has resolved. 7. Continue therapy and discharge planning. Job#: [id number] MATHEW
[2017-12-04 16:00] VITALS: BP 118/62
--- NOTE | 2017-12-04 16:04 | Progress Note ---
DATE: December 04, 2017 CARDIOLOGY PROGRESS NOTE SUBJECTIVE: Patient denies chest pain or shortness of breath. OBJECTIVE VITAL SIGNS: Temperature 98.7 degrees, pulse 76, respiratory rate 20, blood pressure 111/55. Oxygen saturation 98% on 2 L nasal cannula. GENERAL: Elderly man in no acute distress. Awake and alert. LUNGS: Clear to auscultation bilaterally. No wheezes or crackles. CARDIOVASCULAR: Normal rate, regular rhythm. No murmur. Normal S1, S2. ABDOMEN: Soft, nontender. EXTREMITIES: No edema. CARDIAC MEDICATIONS 1. Metoprolol tartrate 25 mg p.o. q.12 h. 2. Aspirin 81 mg p.o. daily. 3. Atorvastatin 40 mg p.o. each bedtime. 4. Furosemide 40 mg IV b.i.d. LABS: WBC 5.6, hemoglobin 10.6, hematocrit 32.7, platelets 410. Sodium 148, potassium 3.4, chloride 100, CO2 38, BUN 28, creatinine 0.71. BNP 140. CHEST X-RAY: Interval removal of support lines and tubes. Otherwise, no significant interval change in the appearance of the heart and lungs. TELEMETRY: Normal sinus rhythm. IMPRESSION 1. Oropharyngeal dysphagia. 2. Acute hypoxic and hypercapnic respiratory failure. 3. Duk-BJ-xitsjmtar myocardial infarction. 4. Acute systolic heart failure with ejection fraction of 35% to 40%. 5. Aspiration pneumonia. 6. Anemia. 7. BPH, status post GreenLight photovaporization of the prostate. RECOMMENDATIONS: Continue current cardiac medications. Suspect the patient has underlying coronary artery disease. Given vzy-IY-jawuitnhe myocardial infarction in the setting of hypercapnic respiratory failure, discussed cardiac catheterization with the patient including risk of myocardial infarction, heart failure and in the setting of untreated coronary artery disease. The patient expressed an understanding but adamantly refused any cardiac evaluation including noninvasive evaluation. Continue medical management. Thank you for this consult. We will continue to follow. Job#: [id number]
[2017-12-04] MEDS: PANTOPRAZOLE 40 MG 10ML VIAL IV SCH (16:30)
[2017-12-04 20:00] VITALS: BP 116/56
[2017-12-04] MEDS: LATANOPROST(OPTH) 2.5 ML BTL OP SCH (21:00)
[2017-12-05] VITALS: BP 125/58
[2017-12-05] MEDS: LEVALBUTEROL HCL SOLN NEBU 0.63 MG/3 ML NEB INH SCH ×4 (00:50→19:45)
[2017-12-05 04:00] VITALS: BP 128/60
[2017-12-05] MEDS: ACETAMINOPHEN 325 MG TAB PO PRN (05:16)
[2017-12-05] MEDS: PYRIDOSTIGMINE BROMIDE 60 MG TAB PO SCH ×3 (05:16→20:47)
[2017-12-05] MEDS: SODIUM CHLORIDE 0.9% 1000ML 1,000 ML IV SCH ×2 (05:31→08:00)
[2017-12-05] MEDS ORDERED: LOPRESSOR25 MG PO (07:07)
[2017-12-05] MEDS ORDERED: ASPIRIN CHEW81 MG PO (07:07)
[2017-12-05] MEDS ORDERED: COLACE100 MG/10 PO (07:07)
[2017-12-05] MEDS ORDERED: MESTINON60 MG PO (07:07)
[2017-12-05] MEDS ORDERED: Atorvastatin NG (07:07)
[2017-12-05 07:47] LABS: ANION GAP 12.4 mmol/L (8-16); BLOOD UREA NITROGEN 26 mg/dL (7-26); BUN/CREATININE RATIO 37 (6-25); CALCIUM 8.3 mg/dL (8.4-10.2); CARBON DIOXIDE 36 mmol/L (22-29); CHLORIDE 99 mmol/L (98-107); CREATININE, SERUM 0.71 mg/dL (0.72-1.25); EST GLOMERULAR FILTRATION RATE > 60 ML/MIN (60-); GLUCOSE 108 mg/dL (74-118); POTASSIUM 3.4 mmol/L (3.5-5.1); SODIUM 144 mmol/L (136-145)
[2017-12-05 07:52] VITALS: BP 125/57
[2017-12-05] MEDS: ASPIRIN 81 MG CHEW TAB PO SCH (09:00)
[2017-12-05] MEDS: FUROSEMIDE INJ 10 MG/ML 4 ML VIAL IV SCH ×2 (09:00→17:00)
[2017-12-05] MEDS: METOPROLOL TARTRATE 25 MG TAB PO SCH ×2 (09:00→20:46)
[2017-12-05] MEDS: ATORVASTATIN 40 MG TAB NG SCH (09:00)
[2017-12-05 11:53] VITALS: BP 121/57
[2017-12-05 16:00] VITALS: BP 121/59
[2017-12-05] MEDS: PANTOPRAZOLE 40 MG 10ML VIAL IV SCH (16:30)
[2017-12-05 20:00] VITALS: BP 126/58
[2017-12-05] MEDS: LATANOPROST(OPTH) 2.5 ML BTL OP SCH (20:46)
[2017-12-06] VITALS (7 sets, daily range): BP systolic 116–136; BP diastolic 58–67
[2017-12-06] MEDS: LEVALBUTEROL HCL SOLN NEBU 0.63 MG/3 ML NEB INH SCH ×4 (01:00→19:53)
[2017-12-06] MEDS: SODIUM CHLORIDE 0.9% 1000ML 1,000 ML IV SCH (05:09)
[2017-12-06] MEDS: PYRIDOSTIGMINE BROMIDE 60 MG TAB PO SCH ×3 (06:03→21:13)
[2017-12-06] MEDS: ATORVASTATIN 40 MG TAB NG SCH (09:21)
[2017-12-06] MEDS: FUROSEMIDE INJ 10 MG/ML 4 ML VIAL IV SCH ×2 (09:21→17:00)
[2017-12-06] MEDS: ASPIRIN 81 MG CHEW TAB PO SCH (09:21)
[2017-12-06] MEDS: METOPROLOL TARTRATE 25 MG TAB PO SCH ×2 (09:22→20:53)
--- NOTE | 2017-12-06 10:28 | Progress Note ---
DATE: December 06, 2017 CARDIOLOGY PROGRESS NOTE SUBJECTIVE: The patient denies chest pain or shortness of breath. OBJECTIVE VITALS: Temperature is 99.3 degrees, pulse 72, respiratory rate 20, blood pressure 120/60, oxygen saturation 98%. GENERAL: Elderly man in no acute distress. Awake and alert. LUNGS: Clear to auscultation bilaterally. No wheezes or crackles. CARDIOVASCULAR: Normal rate. Regular rhythm. No murmur. Normal S1 and S2. ABDOMEN: Soft and nontender. EXTREMITIES: No edema. CARDIAC MEDICATIONS 1. Metoprolol tartrate 25 mg p.o. q.12 h. 2. Furosemide 40 mg IV b.i.d. 3. Aspirin 81mg p.o. daily. 4. Atorvastatin 40 mg p.o. daily. LABS: None today. Telemetry is normal sinus rhythm. IMPRESSION 1. Acute hypoxic and hypercapnic respiratory failure. 2. Bdh-IM-ecqfdcxfa myocardial infarction. 3. Acute systolic heart failure with ejection fraction of 35% to 40%. 4. Aspiration pneumonia. 5. Anemia. 6. BPH: Status post green light photovaporization of the prostate. RECOMMENDATIONS: Continue current cardiac medications. Suspect the patient has underlying coronary artery disease given ygo-RO-xopjihrpr myocardial infarction in the setting of hypercapnic respiratory failure. Discussed indication for cardiac catheterization with the patient. However, the patient refused any cardiac evaluation, including noninvasive evaluation. Discussed risks of myocardial infarction, heart failure and in the setting of unrevascularized coronary artery disease. However, the patient was not interested in proceeding. Continue medical management. Thank you for this consult. We will continue to follow. Job#: [id number] MT
[2017-12-06] MEDS: PANTOPRAZOLE 40 MG 10ML VIAL IV SCH (16:30)
[2017-12-06] MEDS: ACETAMINOPHEN 325 MG TAB PO PRN (19:52)
[2017-12-06] MEDS: LATANOPROST(OPTH) 2.5 ML BTL OP SCH (20:53)
[2017-12-07] VITALS: BP 115/59
[2017-12-07] MEDS: LEVALBUTEROL HCL SOLN NEBU 0.63 MG/3 ML NEB INH SCH ×2 (01:50→07:40)
[2017-12-07 04:00] VITALS: BP 128/67
[2017-12-07] MEDS: PYRIDOSTIGMINE BROMIDE 60 MG TAB PO SCH (05:14)
[2017-12-07 07:30] VITALS: BP 129/59
[2017-12-07 07:45] VITALS: BP 129/59
--- NOTE | 2017-12-07 09:59 | Progress Note ---
DATE: December 07, 2017 CARDIOLOGY PROGRESS NOTE SUBJECTIVE: Patient denies chest pain or shortness of breath. OBJECTIVE: VITAL SIGNS: Temperature 98.1 degrees, pulse 67, respiratory rate 18, blood pressure 129/59, oxygen saturation 95% on 2 liters nasal cannula. GENERAL: Elderly man, in no acute distress, awake and alert. LUNGS: Clear to auscultation bilaterally. No wheezes or crackles. CARDIOVASCULAR: Normal rate, regular rhythm. No murmur. Normal S1 and S2. ABDOMEN: Soft, nontender. EXTREMITIES: No edema. CARDIAC MEDICATIONS: Metoprolol tartrate 25 mg p.o. q.12h., aspirin 81 mg p.o. daily, atorvastatin 40 mg p.o. daily. LABS: None today. TELEMETRY: Normal sinus rhythm with PACs. IMPRESSION: 1. Acute hypoxic and hypercapnic respiratory failure. 2. Dzk-DQ-vcydgwkar myocardial infarction. 3. Acute systolic heart failure with ejection fraction 35% to 40%. 4. Aspiration pneumonia. 5. Anemia. 6. Benign prostatic hypertrophy, status post GreenLight photovaporization of the prostate. RECOMMENDATIONS: Continue current cardiac medications. Patient likely has underlying coronary artery disease given his wfq-XO-uxtadgjsb myocardial infarction in the setting of hypercapnic respiratory failure. Repeatedly discussed indication for cardiac catheterization with the patient, however, patient refused any cardiac evaluation including noninvasive evaluation. Discussed the risks of myocardial infarction, heart failure, and in the setting of unrevascularized coronary artery disease, however, the patient refused to proceed at this time. He was instructed on the importance of close cardiology followup as an outpatient for further discussion. Continue current cardiac medications. Patient expressed he will follow up with geriatric aide closer to his home in [place]. Advised patient not to delay his cardiac evaluation. Thank you for this consult. We will continue to follow. Job#: [id number] DR GOLDSTEIN
--- NOTE | 2017-12-11 20:33 | Progress Note ---
DATE: December 06, 2017 TIME: 9 a.m. OVERNIGHT: No events. REVIEW OF SYSTEMS: Denies any dizziness, chest pain, shortness of breath, fever, chills, sweats, nausea, vomiting, diarrhea. PHYSICAL EXAMINATION: VITAL SIGNS: Reviewed. GENERAL APPEARANCE: Tired-appearing man resting in bed. HEENT: Anicteric. CARDIOVASCULAR: Normal S1 and S2. LUNGS: Moderate breath sounds. ABDOMEN: Soft, nontender, nondistended. : Daniel has been removed. SKIN: Dry. PSYCHIATRIC: Flat affect. NEUROLOGICAL: Alert and appropriate. LABS: Reviewed. MEDICATIONS: Reviewed. ASSESSMENT: A 77-year-old man. 1. Oropharyngeal dysphagia. 2. Acute hypoxemic and hypercapnic respiratory failure. 3. Healthcare-associated pneumonia. 4. Cardiogenic shock. 5. Myasthenia gravis. PLAN: 1. Continue medication regimen. 2. Continue physical therapy. 3. Doing well with Daniel out. 4. Discharge planning. Job#: [id number]
--- NOTE | 2017-12-11 20:34 | Progress Note ---
DATE: December 05, 2017 TIME OF SERVICE: 9 a.m. SUBJECTIVE: Overnight no events. REVIEW OF SYSTEMS: Denies any dizziness, chest pain, fever or chills or sweats, no nausea, vomiting or diarrhea. PHYSICAL EXAMINATION: VITAL SIGNS: Have been reviewed. GENERAL APPEARANCE: Tired-appearing man resting in bed. HEENT: ET tube in place. CARDIOVASCULAR: Normal S1 and S2. LUNGS: Moderate breath sounds. ABDOMEN: Soft, nontender. EXTREMITIES: No edema or calf tenderness. NEUROLOGICAL: Alert and appropriate. LABS: Reviewed. MEDICATIONS: Reviewed. ASSESSMENT: A 77-year-old man. 1. Oropharyngeal dysphagia. 2. Acute hypoxic and hypercapnic respiratory failure. 3. Healthcare-associated pneumonia. 4. Cardiogenic shock. 5. Myasthenia gravis. PLAN 1. Continue current regimen. 2. Continue medications. 3. Continue physical therapy. 4. Discharge planning. Job#: [id number]
--- NOTE | 2017-12-11 20:50 | Discharge Summary ---
PRINCIPAL DIAGNOSES: 1. Oropharyngeal dysphagia. 2. Acute hypoxic and hypercapnic respiratory failure. 3. Healthcare-associated pneumonia. 4. Cardiogenic shock. 5. Carbon dioxide narcosis. 6. Hypernatremia. 7. Sepsis. 8. Myasthenia gravis. 9. History of asbestosis. 10. Benign prostatic hypertrophy with ablation during this hospitalization. 11. Clostridium difficile negative diarrhea. 12. Upm-VC-ifvtvxahp myocardial infarction with left ventricular ejection fraction 35% to 40%. SECONDARY DIAGNOSIS: Myasthenia gravis. CHIEF COMPLAINT AND HISTORY OF PRESENT ILLNESS: Please refer to the H and P. HOSPITAL COURSE: Patient came in for elective procedure for ablation of his enlarged prostate, subsequently developed worsening respiratory status and had to be intubated. Patient had prolonged intubation course in the ICU. He had acute hypoxic and hypercapnic respiratory failure, finally extubated. He also had oropharyngeal dysphagia following and healthcare-associated pneumonia. He was treated with medication and antibiotics. He had cardiogenic shock, which was also treated during hospitalization. He had carbon dioxide narcosis which seemed to occur prior to the respiratory failure and likely contributed to that. He had hypernatremia and sepsis. Myasthenia gravis was treated during hospitalization. He does have a history of asbestosis, will need to follow up closely with pulmonary services once discharged. Patient is doing better, received physical therapy. Daniel has been removed. He has been doing well. His sputum was positive for MRSA. Whether this was MRSA pneumonia or not, it is unclear to me. Patient is currently appropriate for discharge. Will follow up. DISCHARGE MEDICATIONS: Per electronic medical record. FOLLOWUP: 1. He will follow up with primary care doctor in 1 week. 2. Follow up with Dr. Christensen of pulmonary services in 2 weeks. 3. Follow up with Dr. Coello of urology in 1 to 2 weeks. 4. He will also need to follow up with cardiology for further management outpatient as he did have a [id number]-LO-leeiulofo HI. JOSÉ MIGUEL LOMELI MD Job#: [id number]
== END 2017-12-07 09:20 | disposition home health service (06) | DRG 987 ==
LOC: OR 10:01 → PACU V 15:50 → IMCU 18:56 → ICU 19:45 → MED/SURG 11-18 15:14 → ICU 11-18 19:00 → MED/SURG3 12-02 06:15
PROVIDERS: ADMIT Internal Medicine; ATTEND Internal Medicine
PROC: 0BH17EZ Insertion of Endotracheal Airway into Trachea, Via Natural or Artificial Opening (ICD-10-PCS; 2017-11-17)
PROC: 5A1955Z Respiratory Ventilation, Greater than 96 Consecutive Hours (ICD-10-PCS; 2017-11-17)
PROC: 0V507ZZ Destruction of Prostate, Via Natural or Artificial Opening (ICD-10-PCS; principal; 2017-11-17 14:30)
PROC: 02HV33Z Insertion of Infusion Device into Superior Vena Cava, Percutaneous Approach (ICD-10-PCS; 2017-11-18)
PROC: 02HV33Z Insertion of Infusion Device into Superior Vena Cava, Percutaneous Approach (ICD-10-PCS; 2017-11-21)
PROC: B548ZZA Ultrasonography of Superior Vena Cava, Guidance (ICD-10-PCS; 2017-11-21)
DX: J96.02 Acute respiratory failure with hypercapnia (principal); A41.9 Sepsis, unspecified organism; I21.4 Non-ST elevation (NSTEMI) myocardial infarction; R57.0 Cardiogenic shock; I50.23 Acute on chronic systolic (congestive) heart failure; J18.9 Pneumonia, unspecified organism; N13.8 Other obstructive and reflux uropathy; N39.0 Urinary tract infection, site not specified; E87.0 Hyperosmolality and hypernatremia; J96.01 Acute respiratory failure with hypoxia; N40.1 Benign prostatic hyperplasia with lower urinary tract symptoms; R97.20 Elevated prostate specific antigen [PSA]; R39.12 Poor urinary stream; K64.4 Residual hemorrhoidal skin tags; C43.62 Malignant melanoma of left upper limb, including shoulder; D03.59 Melanoma in situ of other part of trunk; G70.00 Myasthenia gravis without (acute) exacerbation; H40.89 Other specified glaucoma; J92.0 Pleural plaque with presence of asbestos; R19.5 Other fecal abnormalities; E66.3 Overweight; Z88.5 Allergy status to narcotic agent; Z88.8 Allergy status to other drugs, medicaments and biological substances; D64.9 Anemia, unspecified; R19.7 Diarrhea, unspecified; R13.12 Dysphagia, oropharyngeal phase; Z68.26 Body mass index [BMI] 26.0-26.9, adult
CPT/HCPCS: 31500; 36415; 36556; 36569; 36600; 52648; 70450; 71045; 71046; 71250; 74018; 74230; 74470; 76937; 80048; 80053; 80061; 80076; 80202; 81001; 82550; 82553; 82805; 82948; 83036; 83605; 83735; 83880; 84100; 84132; 84145; 84484; 85007; 85025; 85027; 85610; 85730; 87040; 87070; 87086; 87186; 87205; 87493; 92950; 93005; 93306; 94002; 94003; 94640; 94660; 94667; 94668; 96360; 96361; 96365; 96366; 97139; C1751; C1769; J1100; J1630; J1644; J1940; J2001; J2250; J2270; J2405; J3370; J3475; J3480; J7030; J7050